=== PATIENT | female | born 1995 | race African-American/Black ===

== ENCOUNTER 2019-06-02 09:32 | Day surgery (SDC) | payer BC ==
[2019-05-30 10:57] LABS: Urine Appearance CLEAR; Urine Bilirubin NEGATIVE (NEG); Urine Blood NEGATIVE (NEG); Urine Color YELLOW; Urine Glucose NEGATIVE (NEG); Urine Protein NEGATIVE (NEG); Urine Specific Gravity 1.015 (1.005-1.030); Urine Urobilinogen 0.2 mg/dL (0.2-1.0); Urine pH 5.5 (5.0-7.0)
[2019-05-30 10:57] LABS: Absolute Lymphocytes (CBC) 1.9 K/uL (0.7-4.9); Basophils % 0.5 % (0-1.3); Hematocrit 36.8 % (36.0-45.0); Lymphocytes % 30.1 % (15.3-44.8); MPV 9.1 fL (7.6-11.3); RBC Red Blood Cell Count 4.41 M/uL (3.86-4.86)
[2019-05-30 11:04] LABS: Urine Microscopic Reflex NO UMIC
--- OUTSIDE RECORDS SUMMARY | 2019-06-02 09:36 | XMS REPORT ---
:1995 [facility] Address [address] [place] [address] [address]. [address] [place] [address] Care Team Providers Name Role Phone Unavailable Unavailable Unavailable Problems This patient has no known problems. Allergies, Adverse Reactions, Alerts This patient has no known allergies or adverse reactions. Medications This patient has no known medications.
[2019-06-02] MEDS ORDERED: SCOPOLAMINE HYDROBROMIDE PATCH TD ONE (10:05)
[2019-06-02] MEDS ORDERED: NA CHLORIDE 0.9% 1,000 ML ONE ×4 (10:05→14:46)
[2019-06-02] MEDS ORDERED: FENTANYL CITR 100 MCG/2 ML ONE (10:34)
[2019-06-02] MEDS ORDERED: PROPOFOL 200 MG/20 ML VIAL IV ONE (10:34)
[2019-06-02] MEDS ORDERED: ROCURONIUM 50 MG/5 ML VIAL IV ONE (10:35)
[2019-06-02] MEDS ORDERED: MIDAZOLAM HCL 2 MG/2 ML INJ ONE (10:35)
[2019-06-02] MEDS ORDERED: LIDOCAINE 1% MPF 5 ML VIAL ONE (10:35)
[2019-06-02] MEDS ORDERED: NS 0.9% VIAL 10 ML ONE (11:28)
[2019-06-02] MEDS ORDERED: VECURONIUM 10 MG/VIAL IV ONE (11:36)
[2019-06-02] MEDS ORDERED: dexAMETHasone 10 MG/ML VIAL ONE (11:37)
[2019-06-02] MEDS ORDERED: KETOROLAC 30 MG/ML INJ ONE (11:37)
[2019-06-02] MEDS ORDERED: DIPHENHYDRAMINE 50 MG/ML VIAL ONE (11:37)
[2019-06-02] MEDS ORDERED: ONDANSETRON 4 MG/2 ML VIAL ONE (12:45)
[2019-06-02] MEDS ORDERED: GLYCOPYRROLATE 0.2 MG/ML SYR ONE (13:02)
[2019-06-02] MEDS ORDERED: NEOSTIGMINE 1 MG/ML -10 ML VIAL ONE (13:02)
[2019-06-02] MEDS: HYDROMORPHONE HCL 2 MG/ML inj ONE ×3 (13:32→14:10)
[2019-06-02] MEDS ORDERED: PROMETHAZINE 25 MG/ML VIAL ONE (13:48)
[2019-06-02] MEDS ORDERED: HYDROCODONE/APAP 5/325 MG TAB ONE (15:22)
--- NOTE | 2019-06-05 03:17 | OP ---
Date of Procedure: 06/02/2019 Surgeon: Dorothy Jacob MD Orthodontic Band Maker: Brandi Acosta. Preoperative Diagnosis: Severe dysmenorrhea, right lower quadrant pain, and right ovarian cyst. Postoperative Diagnoses: Severe dysmenorrhea, right lower quadrant pain, and right ovarian cyst and extensive endometriosis. Procedures Performed: Diagnostic hysteroscopy, diagnostic laparoscopy with endometriosis excision, r ight ovarian biopsy with likely excision of endometriosis. Anesthesia: General endotracheal. Estimated Blood Loss: Minimal. Complications: No complications. Drains: None. Specimens: Right and left anterior cul-de-sac, right and left uterosacral ligaments, left pararectal , rectovaginal septum, and right ovarian endometriosis and all 7 specimens were sent. Left ovarian e ndometriosis was cauterized with fulguration using bipolar cautery. Indications: Patient is a 23-year-old with history of PCOS, endometriosis as a clinical diagnosis, o n naproxen and Zovia. Despite this, her dysmenorrhea has not improved. She also has very severe rig ht lower quadrant pain. After discussing with the patient about all her symptoms, after she failed o ral contraceptives, NSAIDs at the previous time, she had a cyst in the right ovary of 6.4 cm, which w as the side where patient had pain, suspicion of benign versus endometriotic cyst was discussed with the patient. She was given options of endometriosis excision versus observation with followup and po ssible GnRH antagonist. She preferred to proceed with surgical treatment as her pain has gotten much worse and despite the pills it has not improved with ovulation suppression, so she was consented for diagnostic hysteroscopy, diagnostic laparoscopy, endometriosis excision, possible right ovarian cyst ectomy. Bleeding, infection, injury to the bowel, bladder, and ureters was explained to the patient. The com plications include the above, not just as dictated. Recurrence of pain was also discussed. After consented and it was done in the preop, taken back to t he OR, placed in the supine fashion on the operating table. After general anesthesia was given, she was placed in a dorsal lithotomy position using Vik stirrups. Pelvic exam was performed, nodularit y was found on the posterior aspects of the uterosacrals on both sides. Arms were tucked by the side . SCDs were started. Time-out was done. After proper position was secured, abdomen, vulva, vagina, and perineum were prepped and draped in a sterile fashion. Sanchez was placed to drain the bladder an d attached to a Sanchez bag. The anterior lip of the cervix was exposed and held with an Allis clamp. Diagnostic SlimLine hysteroscope was passed through the cervical canal into the uterine cavity to ru le out any uterine anomalies. Both tubal ostia were unremarkable. Pictures were taken. Scope was r emoved. Diagnostic VCare was introduced. This area was draped. 1 cm infraumbilical incision was made with a scalpel using the open laparoscopy technique. Fascia wa s tagged with 0 Vicryl sutures and peritoneum entered sharply with 2 hemostats and Metzenbaum scissor s. Upper abdominal surfaces, liver, gallbladder are unremarkable. Patient's upper abdomen had no sc arring or endometriosis. 5 mm left lower quadrant and suprapubic ports were placed under direct vision, another 4 or 5 mm in t he right lower quadrant was placed because I knew that I would need some help with holding the ovarie s up with the tube with the bowel while I am operating with my other 2 hands. 5 mm port was placed under direct vision. Then, the procedure was started. There was endometriosis in the anterior cul-de-sac, both in the areas of the bladder peritoneum going over the uterine serosa at the level of the bladder pillars. There were clear lesions a little bit more extensive on the le ft than on the right, then the rest of the broad ligaments anteriorly were unremarkable. No other en dometriosis seen posteriorly. There was endometriosis completely infiltrating both uterosacral ligam ents, especially the distal 5 cm, the left was more severe than the right. However, there was some e ndo superior and lateral to the uterosacral ligament at the distal part in between the uterine artery and the uterosacral ligament. The endometriosis was a mirror image on the opposite side. However, there was extensive nodular change, which started at the uterosacral and the left pararectal endometr iosis together formed the large nodule. The rectovaginal septum endometriosis was limited to its spo t. Both tubes were unremarkable and the right ovary had endometriosis in the area that uterus and th e ovary would touch to the uterosacral ligament. There was superficial ovarian capsular involvement. This needed excision on the left side. There was barely rough abnormality on the texture of the ov savannah capsule but no endometriotic implants were seen per se. There were no ovarian cysts seen insid e the right ovary. The ovary on the right and left appeared to be same size and were about 3-4 cm, s o there was no need for looking for the ovarian cyst as it was not present at this time. After all the ports were placed, the right ovary was retracted with the help of the instrument from [facility] right lower quadrant. Then, endometriosis was picked up with the help of Alyse graspers on the capsule and the capsule was excised completely in a wide fashion and this area was gently cauterized at its base with the help of bipolar medium tip, then this was held for retraction on the side and pr oceeded down to the uterosacral dissection first. The peritoneum was opened laterally above the leve l of the ureteric tunnel. The peritoneum was incised with the help of monopolar Storz needle. Once the peritoneum was opened up, I was able to dissect around the lesions and get to the uterosacral onc e the lesions were excised from its underlying surface. There was nothing infiltrating in this part. Then, the uterosacral ligaments were targeted for excision until normal tissue was seen. The right uterosacral was completely infiltrated in the distal 4 cm and before the insertion into the upper va devin and the uterus. This was dissected free and excised with the help of the monopolar needle. The specimen was handed out. Then on the left side, the ureter was identified. The peritoneum was inci sed along the ureter about 10 cm proximally from the level of the ureteric tunnel. I was unable to i dentify and lateralize the ureter. So, once this was done, the peritoneum was opened up. I dissecte d the vessels and the ureter. This was from the peritoneum and it was retracted laterally. However, the implant was inferior and caudad to the course of the ureter. However, I needed to sep arate the ureter and retract it laterally so that I could open up the space getting to the nodule at the left uterosacral. Once this was accessed, the peritoneum was dissected all around the nodule sergio n along the medial aspect of the left pararectal space. An EEA Sizer medium size was inserted into t he rectum in order for me to know the confines of the rectal wall. On visualization, the peritoneal incision was made with the help of scissors, then the monopolar was used to dissect the nodular impla nt off the sidewall. This also included the excision of the uterosacral endometriosis first, then I was able to get to the pararectal space and dissect the entire nodule out. This was sent as 2 specim ens, then posteriorly the peritoneum covering the left pararectal space was getting adherent to the e ndometriotic lesion at the left uterosacral and this started to cause the peritoneum to fold over and obliterate the cul-de-sac on the left side so that the cul-de-sac adhesions were taken down. The pe ritoneum was restored to its normal anatomy. Then the endometriotic implants were all excised with t he help of monopolar Storz tape. The rectovaginal septum had a few implants and these were excised w ith the help of the needle as well. All the specimens were retrieved and handed out for pathology. The left ovarian capsule was cauterized at the area where there was beginning for implantation of end ometriosis. This was then cauterized with the medium tip bipolar completely and thoroughly and pictu res were taken. Thorough irrigation and suction were performed. Copious irrigation was used. Then, Interceed was cut in half and ovaries on both sides were wrapped up in the Interceed so that this co uld potentially prevent adhesions to the uterosacral ligaments or to other organs. There was excelle nt hemostasis. There was complete excision of the endometriosis that was visible. No bowel endometr iosis was seen. No other implants were left behind. All the instruments were removed. Trocars were removed under direct vision. Then, the umbilical Keo port was removed after de-sufflating the ga s. Fascia sutured together with the tagged 0 Vicryl sutures, knots tied at both ends. Then, all the skin incisions closed with the help of interrupted 4-0 Vicryl sutures and Steri-Strips placed. VCar e and the Sanchez were removed. Instrument, needle, and sponge counts were done and were correct at th e end of the case. Patient tolerated the procedure well. She will follow up with me in 1 week. EBL was minimal. SK/PHILIPL Voice ID: [id number] Report ID: [id number]
== END 2019-06-02 16:10 | disposition home or self-care (01) ==
LOC: OR 09:32
PROVIDERS: ATTEND Obstetrics & Gynecology
PROC: 0UBF4ZZ Excision of Cul-de-sac, Percutaneous Endoscopic Approach (ICD-10-PCS; 2019-06-02)
PROC: 0DBP4ZZ Excision of Rectum, Percutaneous Endoscopic Approach (ICD-10-PCS; 2019-06-02)
PROC: 0UB04ZZ Excision of Right Ovary, Percutaneous Endoscopic Approach (ICD-10-PCS; 2019-06-02)
PROC: 0UB44ZZ Excision of Uterine Supporting Structure, Percutaneous Endoscopic Approach (ICD-10-PCS; principal; 2019-06-02 10:30)
DX: N80.3 Endometriosis of pelvic peritoneum (principal); N80.4 Endometriosis of rectovaginal septum and vagina; N80.8 Other endometriosis; N80.1 Endometriosis of ovary; N83.201 Unspecified ovarian cyst, right side; N94.6 Dysmenorrhea, unspecified; E28.2 Polycystic ovarian syndrome; E03.9 Hypothyroidism, unspecified; Z79.899 Other long term (current) drug therapy
CPT/HCPCS: 36415; 81003; 81025; 82962; 85025; 86850; 86900; 86901; 88305; J1100; J1170; J2250; J2405; J2550; J2704; J2710; J3010; J7030

== ENCOUNTER 2021-06-25 06:36 | Day surgery (SDC) | payer BC ==
[2021-06-20 15:46] LABS: Hematocrit 35.7 % (36.0-45.0); RBC Red Blood Cell Count 4.22 M/uL (3.86-4.86)
[2021-06-20 15:47] LABS: Absolute Lymphocytes (CBC) 1.9 K/uL (0.7-4.9); Basophils % 0.5 % (0-1.3); Lymphocytes % 37.8 % (15.3-44.8); MPV 8.5 fL (7.6-11.3)
[2021-06-20 16:24] LABS: Urine Appearance CLEAR (Clear); Urine Bilirubin NEGATIVE (Negative); Urine Blood TRACE (Negative); Urine Color YELLOW (Yellow); Urine Glucose NEGATIVE (Negative); Urine Protein NEGATIVE (Negative); Urine pH 6.5 (5.0-7.0)
[2021-06-20 16:41] LABS: Urine Microscopic Reflex ORDER UMIC
[2021-06-20 17:00] LABS: Urine Bacteria <20 /HPF (<20); Urine RBC <5 /HPF (NONE SEEN)
[2021-06-25] MEDS ORDERED: BUPIVACAINE 0.25% PF 30 ML VIAL ONE (07:15)
[2021-06-25] MEDS ORDERED: METHYLENE BLUE 0.5% 10 ML AMP ONE (07:15)
[2021-06-25] MEDS ORDERED: SCOPOLAMINE HYDROBROMIDE PATCH TD ONE (07:16)
[2021-06-25] MEDS ORDERED: NA CHLORIDE 0.9% 1,000 ML ONE (07:16)
[2021-06-25] MEDS ORDERED: FENTANYL CITR 100 MCG/2 ML ONE ×2 (07:28→08:45)
[2021-06-25] MEDS ORDERED: propofoL 200 MG/20 ML VIAL IV ONE (07:28)
[2021-06-25] MEDS ORDERED: LIDOCAINE 2% MPF 5 ML VIAL ONE (07:29)
[2021-06-25] MEDS ORDERED: MIDAZOLAM HCL 2 MG/2 ML INJ ONE (07:29)
[2021-06-25] MEDS ORDERED: ROCURONIUM 50 MG/5 ML VIAL IV ONE (07:29)
[2021-06-25] MEDS ORDERED: dexAMETHasone 10 MG/ML VIAL ONE (07:29)
[2021-06-25] MEDS ORDERED: ONDANSETRON 4 MG/2 ML VIAL ONE (07:36)
[2021-06-25] MEDS ORDERED: Ringers Lactate 1,000 ML IV ONE ×2 (09:01→10:57)
[2021-06-25] MEDS ORDERED: CEFAZOLIN SODIUM 1 GM/VIAL ONE (10:19)
[2021-06-25] MEDS ORDERED: KETOROLAC 30 MG/ML INJ ONE (10:26)
[2021-06-25] MEDS: MEPERIDINE HCL 25 MG/ML SYR ONE ×2 (11:24→11:29)
[2021-06-25] MEDS ORDERED: MORPHINE 4 MG/ML SYR ONE (12:04)
[2021-06-25] MEDS ORDERED: PROMETHAZINE 25 MG TABLET ONE (12:48)
[2021-06-25] MEDS ORDERED: HYDROCODONE/APAP 5/325 MG TAB ONE ×2 (12:48→13:01)
[2021-06-25 14:12] VITALS: BP 141/77; TEMP 97.7; O2SAT 100
== END 2021-06-25 13:31 | disposition home or self-care (01) ==
LOC: OR 06:36
PROVIDERS: ATTEND Obstetrics & Gynecology
PROC: 0UBF4ZZ Excision of Cul-de-sac, Percutaneous Endoscopic Approach (ICD-10-PCS; 2021-06-25)
PROC: 3E1P88X Irrigation of Female Reproductive using Irrigating Substance, Via Natural or Artificial Opening Endoscopic, Diagnostic (ICD-10-PCS; 2021-06-25)
PROC: 0UJD8ZZ Inspection of Uterus and Cervix, Via Natural or Artificial Opening Endoscopic (ICD-10-PCS; principal; 2021-06-25 07:30)
DX: N94.6 Dysmenorrhea, unspecified (principal); N80.3 Endometriosis of pelvic peritoneum; N94.11 Superficial (introital) dyspareunia; N92.0 Excessive and frequent menstruation with regular cycle; Z87.440 Personal history of urinary (tract) infections; Z20.822 Contact with and (suspected) exposure to COVID-19
CPT/HCPCS: 58555; 58662; 58350; 85025; 36415; 86900; 86850; 81025; 86901; 82947; 88305; U0002; J2704; J2250; J3010 ×2; J1100; J2175; J7120 ×2; J7030; J2405; J0690; 81003; 81015; Q0169

== ENCOUNTER 2021-08-18 14:44 | Emergency (ER) | payer BC, SELFPAY ==
--- NOTE | 2021-08-18 15:35 | EDPHYS ---
Physician Documentation [facility] Name: Connie Duong Age: 25 yrs Sex: Female : 1995 Arrival Date: 08/18/2021 Time: 14:46 Bed 16 Private MD: ED Physician Rey Carmichael HPI: 08/18 15:30 This 25 yrs old Black Female presents to ER via Ambulatory with complaints of cp Hemorrhoids. 15:30 The patient presents to the emergency department with pain in the rectal area. cp 15:30 Onset: The symptoms/episode began/occurred yesterday. Associate signs and symptoms: cp Pertinent negatives: abdominal pain, rectal bleeding. 15:30 Context: the patient has a known history of hemorrhoids, patient reports flare-up with cp menstrual cycle. Patient reports she has been using previously prescribed cream w/o relief. MONEY ORDER CLERK: 15:52 LMP N/A - control method ll1 Historical: - Allergies: 14:59 Sulfa (Sulfonamide Antibiotics); vg1 - Home Meds: 14:59 levothyroxine oral [Active]; Metformin Oral [Active]; vg1 - PMHx: 14:59 PCOS; Hypothyroidism; vg1 - Immunization history:: Adult Immunizations up to date, Client reports receiving the 2nd dose of the Covid vaccine. - Social history:: Smoking status: Patient reports the use of cigarette tobacco products, denies chronic smoking, but will smoke occasionally. ROS: 15:32 Constitutional: Negative for body aches, chills, fever. cp 15:32 Abdomen/GI: Positive for rectal pain, Negative for abdominal pain, nausea, vomiting, and diarrhea, constipation, rectal bleeding. Exam: 15:34 Constitutional: The patient appears in no acute distress, alert, awake, non-toxic, well cp developed, well nourished, obese. 15:34 Head/Face: Normocephalic, atraumatic. cp 15:34 Cardiovascular: Rate: normal. 15:34 Respiratory: the patient does not display signs of respiratory distress, Respirations: normal. 15:34 Abdomen/GI: Inspection: abdomen appears normal, Palpation: abdomen is soft and non-tender, in all quadrants, Rectal exam: hemorrhoid(s), external, with pain, without bleeding, without thrombosis, the exam is chaperoned by the nurse. Vital Signs: 14:57 BP 132 / 87; Pulse 83; Resp 16; Temp 98.4; Pulse Ox 100% ; Weight 97.07 kg; Height 5 vg1 ft. 6 in. (167.64 cm); Pain 10/10; 14:57 Body Mass Index 34.54 (97.07 kg, 167.64 cm) vg1 MDM: 15:09 Patient medically screened. cp 15:35 Differential diagnosis: hemorrhoids, fissure, abscess, pilonidal cyst, condyloma. cp 15:35 Data reviewed: vital signs, nurses notes, and as a result, I will discharge patient. cp Counseling: I had a detailed discussion with the patient and/or guardian regarding: the historical points, exam findings, and any diagnostic results supporting the discharge/admit diagnosis, to return to the emergency department if symptoms worsen or persist or if there are any questions or concerns that arise at home. Administered Medications: No medications were administered Disposition: 15:40 Chart complete. cp Disposition Summary: 08/18/21 15:35 Discharge Ordered Location: Home cp Problem: an ongoing problem cp Symptoms: are unchanged cp Condition: Stable cp Diagnosis - Other hemorrhoids cp Followup: cp - With: Titus Mota MD - When: 1 week - Reason: Worsening of condition Discharge Instructions: - Discharge Summary Sheet cp - High-Fiber Diet cp - Hemorrhoids cp - Surgical Procedures for Hemorrhoids cp - Nonsurgical Procedures for Hemorrhoids cp Forms: - Medication Reconciliation Form cp - Thank You Letter cp - Antibiotic Education cp - Prescription Opioid Use cp Prescriptions: - Anusol-HC 25 mg Rectal Suppository - insert 1 suppository by RECTAL route every 12 hours As needed; 20 suppository; cp Refills: 0, Product Selection Permitted Addendum: 08/22/2021 00:02 Co-signature as Attending Physician, Rey Carmichael MD. r n Signatures: Rey Carmichael MD MD rn Page, Corey, PA PA cp Garcia, Victoria, RN RN vg1
--- NOTE | 2021-08-18 15:35 | ER ---
Nurse's Notes [facility] Name: Connie Duong Age: 25 yrs Sex: Female : 1995 Arrival Date: 08/18/2021 Time: 14:46 Bed 16 Private MD: Diagnosis: Other hemorrhoids Presentation: 08/18 14:57 Chief complaint: Patient states: "Im having a hemorrhoid flare up, this happens every vg1 so often right before my period starts." Pt states bleeding that is bright red and began yesterday and its very uncomfortable to sit down. Coronavirus screen: Vaccine status: Patient reports receiving the 2nd dose of the covid vaccine. Ebola Screen: Patient negative for fever greater than or equal to 101.5 degrees Fahrenheit, and additional compatible Ebola Virus Disease symptoms. Initial Sepsis Screen: Does the patient meet any 2 criteria? No. Patient's initial sepsis screen is negative. Does the patient have a suspected source of infection? No. Patient's initial sepsis screen is negative. Risk Assessment: Do you want to hurt yourself or someone else? Patient reports no desire to harm self or others. Onset of symptoms was August 17, 2021. 14:57 Method Of Arrival: Ambulatory vg1 14:57 Acuity: [place] 3 vg1 Triage Assessment: 14:59 General: Appears in no apparent distress. uncomfortable, Behavior is calm, cooperative. vg1 Pain:. MALTSTER: 15:52 LMP N/A - control method ll1 Historical: - Allergies: 14:59 Sulfa (Sulfonamide Antibiotics); vg1 - Home Meds: 14:59 levothyroxine oral [Active]; Metformin Oral [Active]; vg1 - PMHx: 14:59 PCOS; Hypothyroidism; vg1 - Immunization history:: Adult Immunizations up to date, Client reports receiving the 2nd dose of the Covid vaccine. - Social history:: Smoking status: Patient reports the use of cigarette tobacco products, denies chronic smoking, but will smoke occasionally. Screenin:56 Abuse screen: Denies threats or abuse. Nutritional screening: No deficits noted. ll1 Tuberculosis screening: No symptoms or risk factors identified. 15:52 Fall Risk None identified. Total Ro Fall Scale indicates No Risk (0-24 pts). ll1 Assessment: 15:51 General: Appears uncomfortable, Behavior is calm, cooperative, appropriate for age. ll1 Pain: Complains of pain in anus Quality of pain is described as aching, Aggravated by increased activity. Neuro: No deficits noted. Cardiovascular: No deficits noted. Respiratory: No deficits noted. GI: Rectal exam: Hemorrhoids noted, Bowel sounds present X 4 quads. Abd is soft and non tender X 4 quads. Reports hemorrhoids. Vital Signs: 14:57 BP 132 / 87; Pulse 83; Resp 16; Temp 98.4; Pulse Ox 100% ; Weight 97.07 kg; Height 5 vg1 ft. 6 in. (167.64 cm); Pain 10/10; 14:57 Body Mass Index 34.54 (97.07 kg, 167.64 cm) vg1 ED Course: 14:46 Patient arrived in ED. rg4 14:56 Arm band placed on Patient placed in an exam room, on a stretcher. ll1 14:59 Triage completed. vg1 15:03 Srinivasan Cheng, NIKO is Primary Nurse. ll1 15:03 Patient has correct armband on for positive identification. Bed in low position. Call ll1 light in reach. Side rails up X 1. Cardiac monitoring not applicable on this patient. 15:08 Singh Gao PA is PHCP. cp 15:08 Rey Carmichael MD is Attending Physician. cp 15:33 Titus Mota MD is Referral Physician. cp 15:52 No provider procedures requiring assistance completed. Patient did not have IV access ll1 during this emergency room visit. Administered Medications: No medications were administered Outcome: 15:35 Discharge ordered by MD. cp 15:52 Discharged to home ambulatory. ll1 15:52 Condition: stable 15:52 Discharge instructions given to patient, Instructed on discharge instructions, follow up and referral plans. medication usage, Demonstrated understanding of instructions, follow-up care, medications, Prescriptions given X 1. 15:53 Patient left the ED. ll1 Signatures: Singh Gao PA PA cp Garcia, Rubi rg4 Kavita Suarez RN RN vg1 Srinivasan Cheng RN RN ll1 Corrections: (The following items were deleted from the chart) 15:01 14:57 Chief complaint: Patient states: "Im having a hemorrhoid flare up, this happens vg1 every so often right before my period starts." Pt states bleeding that is bright red and began yesterday. vg1
[2021-08-18 16:02] VITALS: BP 132/87; TEMP 98.4; O2SAT 100
== END 2021-08-18 15:53 | disposition home or self-care (01) ==
LOC: ER 14:44
DX: K64.8 Other hemorrhoids (principal); E28.2 Polycystic ovarian syndrome; E03.9 Hypothyroidism, unspecified; F17.210 Nicotine dependence, cigarettes, uncomplicated; Z79.899 Other long term (current) drug therapy; Z88.2 Allergy status to sulfonamides
CPT/HCPCS: 99282

== ENCOUNTER 2024-08-09 10:48 | Emergency (ER) | payer BC ==
--- OUTSIDE RECORDS SUMMARY | 2024-08-09 10:53 | XMS REPORT | Continuity of Care Document ---
Author Name Unknown Address [address] [place] [address] [facility] thconnect Address [address] [place] [address] Care Team Providers Care Senior Adults Director Name Role Phone SOHA ZIEGLER Primary Care Antionette stevens Unavailable Gloria Albarado Attending Clinician Unavailab EJ Stafford Attending Clinician KANDI Herndon Attending Clinician Unavailable Ebrahim Kandi ROWLAND Attending Clinician + Unknown, Attending Attending Clinician Unavailab Jessie Feldman RN Attending Clinician Unavailmanuel Perdomo MD, Maile Attending Clinician [phone] MIALE PERDOMO Attending Clinician Unavailable Unknown, Attending Attending Clinician Unavailab le [email or web address]_S Attending Clinician Unavaila gee Agudelo Attending Clinician Unavailable BENJAMIN GEE Attending Clinician Unav ailable Reddy_Avery Attending Clinician Unavailable Kathie Blakely Attending Clinician Unavaila Spike Mosher Attending Clinician UnavailLANDEN Perrin Attending Clinician Unavailable PIPO Attending Clinician Unavailable Therapy, Adc Covid Infusion Attending Clinician Unavailable Bobby Arreola MD Attending Clinician [phone] BOBBY ARREOLA Attending Clinician Unavailable Doctor Unassigned, [place] Attending Clinician Dalia Ramey RN Attending Clinician Unavailab chloe Swan, Ang Db Test Attending Clinician Unavailmanuel soni Ebrahim Kandi ROWLAND Attending Clinician + ISABELA HERNANDEZ Attending Clinician Unavailmanuel Guillen DINKERGina Attending Clinician [phone] GINA GUILLEN Attending Clinician Unavailable [email or web address]_S Admitting Clinician Unavaila gee Agudelo Admitting Clinician Unavailable Crisledge_Avery Admitting Clinician Unavailable Kathie Blakely Admitting Clinician Unavaila gee FOSS Admitting Clinician Unavailable EJ BLACKWOOD Admitting Clinician GINA Leal Admitting Clinician Unavailable Payers Payer Name Policy Type Policy Number Effective Date Expiration Date Source [facility] [id number] 2021 00:00:00 [facility] 6 [id number] [facility] [place] [id number] 2023 00:00:00 [place] [id number] 2022 00:00:00 Problems Condition Name Condition Details Condition Category Status Onset Date Resolution Date Last Treatment Date Treating Clinician Comments Source Chronic vaginitis Chronic Vaginitis Problem Active 01-01 00:00: 00 [facility] Recurrent candidiasi s of vagina Recurrent Candidiasi s of Vagina Problem Active 2 00:00: 00 [facility] Acute vaginitis Acute Vaginitis Problem Active 2022-11 030 00:00: 00 [facility] Female stress incontinen ce Female Stress Incontinen ce Problem Active 2022-11 0 00:00: 00 [facility] History of bariatric surgical procedure History of Bariatric Surgical Procedure Problem Active 2021-11 0-03 00:00: 00 [facility] Sickle cell trait Sickle Cell Trait Problem Active 06-05 00:00: 00 [facility] Insulin resistance Insulin Resistance Problem Active 05-05 00:00: 00 [facility] Primary dysmenorrh ea Primary Dysmenorrh ea Problem Active 2020-11 00:00: 00 [facility] Internal hemorrhoid s grade I Internal Hemorrhoid s Grade I Problem Active 2020-11 00:00: 00 [facility] Endometrio sis of pelvic peritoneum Endometrio sis of Pelvic Peritoneum Problem Active 2020-11 0 00:00: 00 [facility] Polymenorr hea Polymenorr hea Problem Active 2020-11 0- 00:00: 00 [facility] Excessive menstruati on with irregular cycle Excessive Menstruati on with Irregular Cycle Problem Active 2020-11 0- 00:00: 00 [facility] Superficia l pain on intercours e Superficia l Pain on Intercours e Problem Active 06-05 00:00: 00 [facility] Excessive and frequent menstruati on Excessive and Frequent Menstruati on Problem Active 06-05 00:00: 00 [facility] Female infertilit y Female Infertilit y Problem Active 7 00:00: 00 [facility] Constipati on Constipati on Problem Active 2 00:00: 00 [facility] Venereal disease screening Venereal Disease Screening Problem Active 2- 00:00: 00 [facility] Pelvic and perineal pain Pelvic and Perineal Pain Problem Active 2 00:00: 00 [facility] RIGHT SIDE PAIN RIGHT SIDE PAIN Active 11/17/2020 [facility] Diagnosis Active 1 00:00: 00 2020-11-17 17:44:00 Lorraine Gomez ABDOMINAL PAIN ABDOMINAL PAIN Active 11/17/2020 [facility] Diagnosis Active 11-17 00:00: 00 2020-11-19 07:14:00 Lorraine Gomez ABD PAIN ABD PAIN Active 11/17/2020 [facility] Diagnosis Active 11-17 00:00: 00 2020-11-17 19:16:00 Lorraine Gomez MORBID OBESITY MORBID OBESITY Active 10/23/2020 [facility] Diagnosis Active 2019-11 215 00:00: 00 2020-11-19 07:14:00 Lorraine Gomez OTHER DISEASES OF THE STOMACH AND DUODEN OTHER DISEASES OF THE STOMACH AND DUODEN Active 08/01/2020 [facility] Diagnosis Active 0 9 00:00: 00 2020-08-17 07:56:00 Lorraine Gomez Endometrio sis of rectovagin al septum and vagina Endometrio sis of Rectovagin al Septum and Vagina Problem Active 06-07 00:00: 00 [facility] Dysuria Dysuria Problem Active 06-07 00:00: 00 [facility] Diarrhea Diarrhea Problem Active 05-30 00:00: 00 [facility] Right lower quadrant pain Right Lower Quadrant Pain Problem Active 04-08 00:00: 00 [facility] Cyst of right ovary Cyst of Right Ovary Problem Active 04-08 00:00: 00 [facility] Hypothyroi dism Hypothyroi dism Problem Active 0 12-08 00:00: 00 [facility] Hirsutism Hirsutism Problem Active 12-08 00:00: 00 [facility] Active immunizati on Active Immunizati on Problem Active 12-08 00:00: 00 [facility] Polycystic ovary syndrome Polycystic Ovary Syndrome Problem Active 12-08 00:00: 00 [facility] Severe obesity Severe Obesity Problem Active 12-07 00:00: 00 [facility] Dysmenorrh ea Dysmenorrh ea Problem Active 12-07 00:00: 00 [facility] Genuine stress incontinen ce Genuine Stress Incontinen ce Problem Active 12-07 00:00: 00 [facility] History of urinary tract infection History of Urinary Tract Infection Problem Active 12-07 00:00: 00 [facility] Contracept ion care education Contracept ion Care Education Problem Active 12-07 00:00: 00 [facility] Gynecologi rubén examinatio n abnormal Gynecologi rubén Examinatio n Abnormal Problem Active 12-07 00:00: 00 [facility] Myopia (disorder) Myopia (disorder) Active 06/28/2013 Problem 03/14/2021 Data migrated from [employer] on 04/07/15. [facility] Problem Active 06-28 00:00: 00 2021-03-14 00:57:51 Memoria avery Gomez [id number] Lumbar Radiculopa thy Problem [facility] Anxiety (finding) Anxiety (finding) Active Problem 03/14/2021 [facility] Problem Active 2021-03-14 00:57:51 Memoria avery Gomez Mixed anxiety and depressive disorder (disorder) Mixed anxiety and depressive disorder (disorder) Active Problem 03/14/2021 [facility] Problem Active 2021-03-14 00:57:51 Memoria avery Gomez Morbid obesity (disorder) Morbid obesity (disorder) Active Problem 03/14/2021 [facility] Problem Active 2021-03-14 00:57:51 Lorraine Gomez ILLNESS, UNSPECIFIE D ILLNESS, UNSPECIFIE D Active [facility] Diagnosis Active 2020-11-19 07:14:00 Lorraine Gomez UNSPECIFIE D ABDOMINAL PAIN UNSPECIFIE D ABDOMINAL PAIN Active [facility] Diagnosis Active 2020-11-19 07:14:00 Lorraine Gomez No known active problems No known active problems Disease [facility] acute hospital Allergies, Adverse Reactions, Alerts Allergy Name Allergy Type Status Severity Reaction(s) Onset Date Inactive Date Treating Clinician Comments Source SULFAMET HOXAZOLE -TRIMETH OPRIM DRUG Active Unknown-Cmnt 08-07 00:00: 00 [facility] Sulfamet hoxazole -Trimeth oprim Drug Allergy Active Unknown - See comments 08-07 00:00: 00 [facility] CIPROFLO XACIN DRUG INGREDI Active Med Hives 04-14 00:00: 00 [facility] Ciproflo xacin Drug Allergy Active Rash 04-14 00:00: 00 [facility] Sulfa (Sulfona mide Antibiot ics) Propensi ty to adverse reaction s Active Rash 07-29 00:00: 00 [facility] Sulfa (Sulfona mide Antibiot ics) Drug Allergy Active Other - See comments 07-29 00:00: 00 [facility] Sulfa (Sulfona mide Antibiot ics) Propensi ty to adverse reaction s Active Rash 07-29 00:00: 00 [facility] SULFA (SULFONA MIDE ANTIBIOT ICS) Drug Class Active Rash 07-29 00:00: 00 [facility] LIRAGLUT DANIELLA DRUG INGREDI Active NAUSEA ONLY 03-13 00:00: 00 [facility] Liraglut daniella Drug Allergy Active Nausea Only 03-13 00:00: 00 [facility] Ciproflo xacin Allergy to substanc e Active Hives [facility] Sulfacet amide Allergy to substanc e Active Hives [facility] sulfa drugs<womack p>1</sup > sulfa drugs<womack p>1</sup > Active Lorraine Gomez SULFA (SULFONA MIDE ANTIBIOT ICS) Allergy to substanc e Active Moderate Rash [facility] Social History Social Habit Start Date Stop Date Quantity Comments Source Sex Assigned At [facility] History of Tobacco Use [facility] Sexual orientation [facility] Exposure to SARS-CoV-2 (event) Not sure [facility] Social History 2020-11-05 17:49:38 2020-11-05 17:49:38 [facility] Smoking Status Start Date Stop Date Source Never Smoker [facility] Former Smoker [facility] Tobacco smoking consumption unknown [facility] Medications Ordered Medication Name Filled Medication Name Start Date Stop Date Current Medication? Ordering Clinician Indication Dosage Frequency Signature (SIG) Comments Components Source bromphenira mine-pseudo ephedrine-D M (BROMFED DM) 2-30-10 mg/5 mL syrup 03-14 00:00: 00 Yes [id number] 10mL Take 10 mL by mouth 4 (four) times daily as needed for Cold symptoms or Congestion /Allergies . [facility] azelastine 137 mcg (0.1 %) nasal spray 03-14 00:00: 00 Yes [id number] 1{spray } Use 1 Edcouch in each nostril in the morning and 1 Edcouch in the evening. Use in each nostril as directed [facility] fluticasone propionate 50 mcg/actuati on nasal spray 03-14 00:00: 00 Yes [id number] 1{spray } Use 1 Edcouch in each nostril in the morning. [facility] albuterol 90 mcg/actuati on inhaler 03-14 00:00: 00 Yes [id number] 2{puff} Inhale 2 Puffs every 6 (six) hours as needed for Shortness of Breath or Wheezing. [facility] predniSONE 20 mg tablet 03-14 00:00: 00 03-20 04:59 :00 No [id number] 40mg Take 2 tablets by mouth in the morning for 5 days. [facility] acute hospital casirivimab -imdevimab (REGEN-COV (EUA)) injection (CO-FORMULA TION) 1,200 mg 2020-11 15:45: 00 10-26 15:41 :00 No [id number] 1200mg 1,200 mg, Subcutaneo us, ONCE, 1 dose, On 10/26/21 at 1000, Routine [facility] acute [facility] multivitami n with iron 03-11 15:30: 00 Yes 1 mL =, PO, Daily, 0 Refill(s) Lorraine Gomez Vitamin D3 03-11 15:30: 00 Yes 0 Refill(s) Lorraine Gomez Calcium Citrate 03-11 15:30: 00 Yes PO, BID, 0 Refill(s) Lorraine Gomez Miralax 11-18 15:00: 00 No Notes: Dissolve in 8 oz of water or juice. (Same as: Miralax) Lorraine Lawsonann Thyroxine 11-18 12:30: 00 No Notes: Take 1 hour before or 2 hours after meal; Enteral feeds may interefere with the absorption of this medication . (Same as:Synthro id, Levothroid ) Sanazmarcia Lawsonann Wellbutrin 11-18 05:00: 00 No Notes: (Same As: Wellbutrin ) Sanazmarcia avery Mcgrath Effexor 11-18 04:45: 00 No Notes: (Same As: Effexor) Lorraine Gomez Docusate Sodium 100 MG Oral Capsule [Colace] 11-18 03:00: 00 No Notes: (Same as: Colace) (Do Not Crush) Lorraine Gomez Sucralfate 11-18 03:00: 00 No Notes: May interfere w/enteral feeds - Take 1 hr before or 2 hr after antacids, dairy pdt, meals & minerals - On empty stomach. For patients unable to swallow tablet, dissolve in 10mL - 30mL of water or juice and stir before giving. (Same As: Carafate) Sanazmarcia Lawsonann Protonix 11-18 02:33: 00 No Notes: For IV push reconstitu te with 10 ml 0.9% sodium chloride and push over 2 minutes. (Same as: Protonix) Lorraine Gomez Calcium Chloride 0.0014 MEQ/ML / Potassium Chloride 0.004 MEQ/ML / Sodium Chloride 0.103 MEQ/ML / Sodium Lactate 0.028 MEQ/ML Injectable Solution 11-18 01:35: 00 No 1,000 mL, Rate: 125 ml/hr, Infuse over: 8 hr, Route: IV, Dosing Weight 114.091 kg, Total Volume: 1,000, Start date: 11/17/20 19:35:00 [employer], Duration: 30 day, Stop date: 12/17/20 19:34:00 [employer], 2.34, m2, 0 Lorraine Gomez Acetaminoph en 11-18 01:35: 00 No Notes: Max acetaminop hen = 4000mg/day (4 gm/day). (Same as: Tylenol) Lorraine Gomez tramadol hydrochlori de 50 MG Oral Tablet 11-18 01:35: 00 No Notes: Not to exceed 400mg/day. (Same As: Ultram) Lorraine Gomez Dilaudid 11-18 01:35: 00 No Notes: Same as Dilaudid Lorraine Gomez Sodium Chloride 0.9% IV 984.8 mL + M.V.I.-12 10 mL Daily + folic acid IV 1 mg Daily + thiamine IV 5 11-18 01:35: 00 No 984.8 mL, Rate: 100 ml/hr, Infuse over: 10 hr, Route: IV, Dosing Weight 114.091 kg, Total Volume: 1,000, Start date: 11/17/20 19:35:00 [employer], Duration: 1 doses or times, Stop date: 11/18/20 5:34:00 [employer], 2.34, m2, 0 Lorraine Gomez Calcium Chloride 0.0014 MEQ/ML / Potassium Chloride 0.004 MEQ/ML / Sodium Chloride 0.103 MEQ/ML / Sodium Lactate 0.028 MEQ/ML Injectable Solution 11-18 01:29: 00 No 1,000 mL, 1,000 ml/hr, Infuse Over: 1 hr, Route: IV, 1,000, Drug form: INJ, ONCE, Priority: STAT, Dosing Weight 114.091 kg, Start date: 11/17/20 19:29:00 [employer], Stop date: 11/17/20 19:29:00 [employer], 0 Lorraine Gomez Saline Flush 0.9% 11-17 21:20: 00 No Notes: (Same as: BD Posiflush) Lorraine Gomez ursodiol 300 mg oral capsule 11-15 21:19: 00 Yes 300 mg = 1 cap, PO, BID, # 180 cap, 1 Refill(s), Pharmacy: [facility] Cristiano Piedra, 167.64, cm, 11/15/20 14:02:00 [employer], Height, 114.091, kg, 11/15/20 14:02:00 [employer], Weight Sanazmarcia avery Gomez Potassium Chloride 1.33 MEQ/ML Oral Solution 11-10 15:00: 00 No Notes: (Same as: Potassium Chloride) Lorraine Gomez Ondansetron 4 MG Oral Tablet [Zofran] 11-10 14:41: 00 Yes 4 mg = 1 tab, PO, BID, # 10 tab, 0 Refill(s) Lorraine Gomez Emend 11-09 17:30: 00 No Notes: (Same as: Emend) restricted to the Hematology /Oncology service for high and moderate emetogenic regimen according to ASCO Guidelines Only for Chemothera py-Induced nausea & vomiting Lorraine Gomez Wellbutrin 11-09 16:18: 00 No 75 mg, 1 tab, Route: PO, Drug form: TAB, Daily, Dosing Weight 122.273, kg, Start date: 11/09/20 10:18:00 [employer], Duration: 30 day, Stop date: 12/09/20 9:00:00 [employer], 0 Lorraine Gomez Thyroxine 11-09 16:18: 00 No Notes: Take 1 hour before or 2 hours after meal; Enteral feeds may interefere with the absorption of this medication . (Same as:Synthro id, Levothroid ) Lorraine Gomez Effexor 11-09 16:17: 00 No Notes: (Same As: Effexor) Lorraine Gomez tramadol hydrochlori de 50 MG Oral Tablet 11-09 14:55: 00 No Notes: Not to exceed 400mg/day. (Same As: Ultram) Lorraine Gomez tramadol hydrochlori de 50 MG Oral Tablet 11-09 14:50: 00 Yes 50 mg = 1 tab, PO, BID, X 15 day, # 30 tab, 0 Refill(s) Lorraine Lawsonann Emend 11-09 14:48: 00 No 40 mg, Route: PO, ONCE, Dosing Weight 122.273, kg, Start date: 11/09/20 8:48:00 [employer], Stop date: 11/09/20 8:48:00 [employer] Lorraine Gomez Enoxaparin 11-09 06:00: 00 No Notes: (Same as: Lovenox) Lorraine varela Mcgrath Ofirmev 11-09 00:00: 00 No Notes: Infuse over 15 minutes Do not exceed 4gm/day of acetaminop hen MEDICATION WASTE Product Size: 1000 mg Product Wasted: ___ mg Lorraine Gomez ketOROLAC 30 mg/mL injectable solution 2019-11 22:23: 00 No 4 days MEDICATION WASTE Product Size: 30 mg Product Wasted: ___ mg Lorraine Gomez glycopyrrol ate (ANES) 2019-11 17:59: 00 No Route: IV, Drug form: INJ, ONCE, Stop date: 11/08/20 11:59:00 [employer] Lorraine Gomez neostigmine (ANES) 2019-11 17:59: 00 No Route: IV, Drug form: INJ, ONCE, Stop date: 11/08/20 11:59:00 [employer] Lorraine Gomez dexamethaso ne (ANES) 2019-11 17:59: 00 No Route: IV, Drug form: INJ, ONCE, Stop date: 11/08/20 11:59:00 [employer] Lorraine Gomez sugammadex (ANES) 2019-11 17:59: 00 No Route: IV, Drug form: SOLN, ONCE, Stop date: 11/08/20 11:59:00 [employer] Lorraine Gomez Dilaudid 2019-11 17:54: 00 No 0.5 mg, Route: IVP, Q3H, Dosing Weight 122.273, kg, PRN Pain Score 7-10, Start date: 11/08/20 11:54:00 [employer], Duration: 30 day, Stop date: 12/08/20 11:53:00 [employer] Lorraine Gomez Phenergan 2019-11 17:54: 00 No 12.5 mg, 50 mL, Route: IVPB, Drug form: SOLN, Q4H, Dosing Weight 122.273, kg, PRN Nausea & Vomiting, Start date: 11/08/20 11:54:00 [employer], Duration: 30 day, Stop date: 12/08/20 11:53:00 [employer], 0 Lorraine Gomez Zofran 2019-11 17:54: 00 No 4 mg, Route: IVP, Drug form: INJ, Q8H, Dosing Weight 122.273, kg, PRN Nausea, Start date: 11/08/20 11:54:00 [employer], Duration: 30 day, Stop date: 12/08/20 11:53:00 [employer] Lorraine Gomez Emend 2019-11 17:54: 00 No Notes: Same as: Emend restricted to the Hematology /Oncology service for high and moderate emetogenic regimen according to ASCO Guidelines Passthroug h Only for Chemothera py-Induced nausea & vomiting Lorraine Gomez Calcium Chloride 0.0014 MEQ/ML / Potassium Chloride 0.004 MEQ/ML / Sodium Chloride 0.103 MEQ/ML / Sodium Lactate 0.028 MEQ/ML Injectable Solution 2019-11 17:51: 00 No 1,000 mL, Rate: 125 ml/hr, Infuse over: 8 hr, Route: IV, Dosing Weight 122.273 kg, Total Volume: 1,000, Start date: 11/08/20 11:51:00 [employer], Stop date: 11/09/20 7:00:00 [employer], 2.43, m2, 0 Lorraine Gomez Lactated Ringers IV 1,000 mL 2019-11 17:51: 00 No 1,000 mL, Rate: 80 ml/hr, Infuse over: 12.5 hr, Route: IV, Dosing Weight 122.273 kg, Total Volume: 1,000, Priority: STAT, Start date: 11/08/20 11:51:00 [employer], Duration: 30 day, Stop date: 12/08/20 11:50:00 [employer], 2.43, m2, 0 Lorraine Gomez Dilaudid 2019-11 17:51: 00 No Notes: Same as Dilaudid Lorraine Gomez Zofran 2019-11 17:51: 00 No Notes: (Same as: Zofran) MEDICATION WASTE Product Size: 4 mg Product Wasted: ___ mg Lorraine Gomez Phenergan 2019-11 17:51: 00 No 12.5 mg, 50 mL, Route: IVPB, Drug form: SOLN, Q4H, Dosing Weight 122.273, kg, PRN Nausea & Vomiting, Start date: 11/08/20 11:51:00 [employer], Duration: 30 day, Stop date: 12/08/20 11:50:00 [employer], 0 Lorraine Gomez Hydromorpho ne 2019-11 17:51: 00 No 0.3 mg, Route: IVP, Q3H, Dosing Weight 122.273, kg, PRN Pain Score 7-10, Start date: 11/08/20 11:51:00 [employer], Duration: 5 day, Stop date: 11/13/20 11:50:00 [employer] Sanazmarcia avery Gomez ondansetron (ANES) 2019-11 17:44: 00 No Route: IV, Drug form: INJ, ONCE, Stop date: 11/08/20 11:44:00 [employer] Lorraine Gomez famotidine (ANES) 2019-11 17:18: 00 No Route: IV, Drug form: INJ, ONCE, Stop date: 11/08/20 11:18:00 [employer] Lorraine Gomez acetaminoph en (ANES) 10 mg 2019-11 17:15: 00 No Route: IV, Drug form: INJ, Start date: 11/08/20 11:15:00 [employer], Stop date: 11/08/20 12:15:00 [employer] Lorraine Gomez rocuronium (ANES) 2019-11 17:13: 00 No Route: IV, Drug form: INJ, ONCE, Stop date: 11/08/20 11:13:00 [employer] Lorraine Gomez lidocaine (ANES) 2019-11 17:08: 00 No Route: IV, Drug form: INJ, ONCE, Stop date: 11/08/20 11:08:00 [employer] Lorraine Gomez propofol (ANES) 2019-11 17:08: 00 No Route: IV, Drug form: INJ, ONCE, Stop date: 11/08/20 11:08:00 [employer] Lorraine Gomez succinylcho line ([facility]) 2019-11 17:08: 00 No Route: IV, Drug form: INJ, ONCE, Stop date: 11/08/20 11:08:00 [employer] Lorraine Gomez midazolam ([facility]) 2019-11 17:03: 00 No Route: IV, Drug form: SOLN, ONCE, Stop date: 11/08/20 11:03:00 [employer] Lorraine Gomez fentaNYL ([facility]) 2019-11 17:03: 00 No Route: IV, Drug form: INJ, ONCE, Stop date: 11/08/20 11:03:00 [employer] Lorraine Gomez ceFAZolin ([facility]) 2019-11 17:03: 00 No Route: IV, Drug form: INJ, ONCE, Stop date: 11/08/20 11:03:00 [employer] Lorraine Gomez Calcium Chloride 0.0014 MEQ/ML / Potassium Chloride 0.004 MEQ/ML / Sodium Chloride 0.103 MEQ/ML / Sodium Lactate 0.028 MEQ/ML Injectable Solution 2019-11 16:55: 00 No 1,000 mL, Rate: 125 ml/hr, Infuse over: 8 hr, Route: IV, Dosing Weight 122.273 kg, Total Volume: 1,000, Start date: 11/08/20 10:55:00 [employer], Duration: 30 day, Stop date: 12/08/20 10:54:00 [employer], 2.43, m2 Lorraine Gomez Morphine 2019-11 16:55: 00 No 4 mg, Route: IVP, Q5Min, Dosing Weight 122.273, kg, PRN Pain Score 7-10, Start date: 11/08/20 10:55:00 [employer], Duration: 3 doses or times, Stop date: Limited # of times Lorraine Gomez Flumazenil 2019-11 16:55: 00 No 0.2 mg, Route: IVP, PRN, Dosing Weight 122.273, kg, PRN Benzodiaze pine Reversal, Initial dose, Start date: 11/08/20 10:55:00 [employer], Duration: 30 day, Stop date: 12/08/20 10:54:00 [employer] Lorraine Gomez Naloxone 2019-11 16:55: 00 No 0.4 mg, Route: IVP, Q2MIN, Dosing Weight 122.273, kg, PRN Narcotic Reversal, Start date: 11/08/20 10:55:00 [employer], Duration: 8 doses or times, Stop date: Limited # of times Lorraine Gomez Ondansetron 2019-11 16:55: 00 No 4 mg, Route: IVP, ONCE, Dosing Weight 122.273, kg, PRN Nausea & Vomiting, Start date: 11/08/20 10:55:00 [employer] Lorraine Gomez Lactated Ringers Injection IV (ANES) 1000 mL 2019-11 16:23: 00 No Route: IV, Total Volume: 1,000, Start date: 11/08/20 10:23:00 [employer], Stop date: 11/08/20 11:23:00 [employer] Lorraine Gomez ceFAZolin + sterile water 30 mL 2019-11 04:00: 00 No Notes: (Same As: Alex Turcios) MEDICATION WASTE Product Size: 1000 mg Product Wasted: ___ mg Lorraine Gomez scopolamine 2019-11 04:00: 00 No Notes: Change patch every 72 hours (Same as: Transderm- Scop) Lorraine Gomez Lactated Ringers Injection IV 1,000 mL 2019-11 03:52: 00 No 1,000 mL, Rate: as directed, Route: IV, Dosing Weight 122.273 kg, Total Volume: 1,000, Start date: 11/07/20 21:52:00 [employer], Stop date: 11/08/20 23:00:00 [employer], 2.43, m2, 0 Memmarcia Gomez Spironolact one 2019-11 13:50: 00 Yes 75 mg, PO, BID, # 60 tab, 0 Refill(s) Memmarcia Lawsonann Wellbutrin 2019-11 13:50: 00 Yes PO, 0 Refill(s) Memmarcia Gomez Effexor 2019-11 13:50: 00 Yes 75 mg, PO, Daily, 0 Refill(s) Lorraine Gomez 24 HR Metformin hydrochlori de 500 MG Extended Release Tablet [Fortamet] 02-26 16:00: 00 Yes 2, 2 a day, 0 Refill(s) Lorraine Gomez ketorolac (TORADOL) injection 30 mg 02-10 05:15: 00 02-10 04:09 :00 No 30mg 30 mg, Slow IV Push, ONCE, 1 dose, 02/11/20 at 0015, Routine
social work faculty member approving Restricted medication : GINA GUILLEN [facility] acute hospital oxybutynin XL 5 mg 24 hr tablet 02-10 00:00: 02-18 04:59 :00 No [id number] 5mg Take 1 tablet by mouth daily for 7 days. [facility] acute hospital naproxen 375 mg tablet 02-10 00:00: 02-18 04:59 :00 No [id number] 375mg Take 1 tablet by mouth 3 (three) times daily with meals for 7 days. [facility] acute hospital metFORMIN 500 mg tablet 03-28 15:23: 33 Yes 500mg Take 500 mg by mouth 2 (two) times daily with meals. [facility] acute hospital ethynodiol d-ethinyl estradiol ([facility] , 28, ORAL) 03-28 15:23: 33 Yes Take by mouth. [facility] acute hospital metFORMIN 500 mg tablet 03-28 10:23: 33 Yes 500mg Take 500 mg by mouth 2 (two) times daily with meals. General acute hospital ethynodiol d-ethinyl estradiol (KELNOR 35, 28, ORAL) 03-28 10:23: 33 Yes Take by mouth. [facility] ondansetron 4 mg disintegrat ing tablet 03-28 00:00: 00 Yes [id number] 4mg Take 1 tablet by mouth every 8 (eight) hours as needed for Nausea and Vomiting (N/V). [facility] Meloxicam 7.5 MG Meloxicam 7.5 MG No 1{table t} QD Meloxicam 7.5 MG clindamycin 2 % vaginal cream Insert 1 applicatorf ul twice a week by vaginal route for 90 days. clindamycin 2 % vaginal cream Insert 1 applicatorf ul twice a week by vaginal route for 90 days. No 1applic ator(s) ful Q3.5D clindamyci n 2 % vaginal cream Insert 1 applicator ful twice a week by vaginal route for 90 days. [facility] Diflucan 150 mg tablet take 1 tablet by mouth now and again in 72 hours, then once a week for 12 weeks Diflucan 150 mg tablet take 1 tablet by mouth now and again in 72 hours, then once a week for 12 weeks No Diflucan 150 mg tablet take 1 tablet by mouth now and again in 72 hours, then once a week for 12 weeks [facility] azelaic acid 15 % topical gel azelaic acid 15 % topical gel No azelaic acid 15 % topical gel [facility] Cetrotide 0.25 mg subcutaneou s kit Cetrotide 0.25 mg subcutaneou s kit No Cetrotide 0.25 mg subcutaneo us kit [facility] clindamycin 1 % lotion clindamycin 1 % lotion No clindamyci n 1 % lotion [facility] doxylamine 10 mg-pyridoxi ne (vit B6) 10 mg tablet,balbir yed release TAKE ONE TABLET BY ORAL ROUTE IN THE MORNING, ONE TABLET MID AFTERNOON, AND TWO TABLETS AT BEDTIME. doxylamine 10 mg-pyridoxi ne (vit B6) 10 mg tablet,balbir yed release TAKE ONE TABLET BY ORAL ROUTE IN THE MORNING, ONE TABLET MID AFTERNOON, AND TWO TABLETS AT BEDTIME. No doxylamine 10 mg-pyridox ine (vit B6) 10 mg tablet,del ayed release TAKE ONE TABLET BY ORAL ROUTE IN THE MORNING, ONE TABLET MID AFTERNOON, AND TWO TABLETS AT BEDTIME. [facility] estradiol 2 mg tablet TAKE ONE TABLET BY MOUTH SUBLINGUALL Y TWICE A DAY THEN INCREASE TO THREE TIMES A DAY estradiol 2 mg tablet TAKE ONE TABLET BY MOUTH SUBLINGUALL Y TWICE A DAY THEN INCREASE TO THREE TIMES A DAY No estradiol 2 mg tablet TAKE ONE TABLET BY MOUTH SUBLINGUAL LY TWICE A DAY THEN INCREASE TO THREE TIMES A DAY [facility] folic acid 1 mg tablet TAKE 1 TABLET BY MOUTH EVERY DAY folic acid 1 mg tablet TAKE 1 TABLET BY MOUTH EVERY DAY No folic acid 1 mg tablet TAKE 1 TABLET BY MOUTH EVERY DAY [facility] Gonal-F RFF Redi-Ject 900 unit/1.5 mL subcutaneou s pen injector Gonal-F RFF Redi-Ject 900 unit/1.5 mL subcutaneou s pen injector No Gonal-F RFF Redi-Ject 900 unit/1.5 mL subcutaneo us pen injector [facility] levothyroxi ne 75 mcg tablet TAKE 1 TABLET BY MOUTH EVERY DAY IN THE MORNING ON EMPTY STOMACH FOR 90 DAYS levothyroxi ne 75 mcg tablet TAKE 1 TABLET BY MOUTH EVERY DAY IN THE MORNING ON EMPTY STOMACH FOR 90 DAYS No levothyrox ine 75 mcg tablet TAKE 1 TABLET BY MOUTH EVERY DAY IN THE MORNING ON EMPTY STOMACH FOR 90 DAYS [facility] metformin ER 500 mg tablet,exte nded release 24 hr TAKE 2 TABLETS BY MOUTH WITH EVENING MEAL ONCE A DAY 90 DAYS metformin ER 500 mg tablet,exte nded release 24 hr TAKE 2 TABLETS BY MOUTH WITH EVENING MEAL ONCE A DAY 90 DAYS No metformin ER 500 mg tablet,ext ended release 24 hr TAKE 2 TABLETS BY MOUTH WITH EVENING MEAL ONCE A DAY 90 DAYS [facility] metoclopram daniella 10 mg tablet TAKE 1 TABLET BY MOUTH THREE TIMES A DAY FOR 30 DAYS metoclopram daniella 10 mg tablet TAKE 1 TABLET BY MOUTH THREE TIMES A DAY FOR 30 DAYS No metoclopra mide 10 mg tablet TAKE 1 TABLET BY MOUTH THREE TIMES A DAY FOR 30 DAYS [facility] ondansetron 8 mg disintegrat ing tablet PLACE 1 TABLET ON TOP OF THE TONGUE EVERY 8 HOURS NEEDED FOR NAUSEA ondansetron [address] disintegrat ing tablet PLACE 1 TABLET ON TOP OF THE TONGUE EVERY 8 HOURS NEEDED FOR NAUSEA No ondansetro n 8 mg disintegra ting tablet PLACE 1 TABLET ON TOP OF THE TONGUE EVERY 8 HOURS NEEDED FOR NAUSEA [facility] pantoprazol e 40 mg tablet,balbir yed release TAKE 1 TABLET BY MOUTH EVERY DAY pantoprazol e 40 mg tablet,balbir yed release TAKE 1 TABLET BY MOUTH EVERY DAY No pantoprazo le 40 mg tablet,del ayed release TAKE 1 TABLET BY MOUTH EVERY DAY [facility] Prenate Mini (ferrous asparto glycinate) 18 mg-1 mg-350 mg capsule Take by oral route for 90 days. Prenate Mini (ferrous asparto glycinate) 18 mg-1 mg-350 mg capsule Take by oral route for 90 days. No Prenate Mini (ferrous asparto glycinate) 18 mg-1 mg-350 mg capsule Take by oral route for 90 days. [facility] progesteron e micronized 200 mg capsule TAKE 1 CAPSULE BY MOUTH TWICE A DAY progesteron e micronized 200 mg capsule TAKE 1 CAPSULE BY MOUTH TWICE A DAY No progestero ne micronized 200 mg capsule TAKE 1 CAPSULE BY MOUTH TWICE A DAY [facility] promethazin e 25 mg tablet TAKE ONE (1) TABLET BY MOUTH EVERY 6 HOURS NEEDED FOR NAUSEA promethazin e 25 mg tablet TAKE ONE (1) TABLET BY MOUTH EVERY 6 HOURS NEEDED FOR NAUSEA No promethazi ne 25 mg tablet TAKE ONE (1) TABLET BY MOUTH EVERY 6 HOURS NEEDED FOR NAUSEA [facility] Vitafol Ultra 29 mg iron-1 mg-200 mg capsule Take 1 capsule every day by oral route. Vitafol Ultra 29 mg iron-1 mg-200 mg capsule Take 1 capsule every day by oral route. No 1capsul e(s) Q1D Vitafol Ultra 29 mg iron-1 mg-200 mg capsule Take 1 capsule every day by oral route. [facility] azelaic acid 15 % topical gel azelaic acid 15 % topical gel No azelaic acid 15 % topical gel [facility] Cetrotide 0.25 mg subcutaneou s kit Cetrotide 0.25 mg subcutaneou s kit No Cetrotide 0.25 mg subcutaneo us kit [facility] clindamycin 1 % lotion clindamycin 1 % lotion No clindamyci n 1 % lotion [facility] doxylamine 10 mg-pyridoxi ne (vit B6) 10 mg tablet,balbir yed release TAKE ONE TABLET BY ORAL ROUTE IN THE MORNING, ONE TABLET MID AFTERNOON, AND TWO TABLETS AT BEDTIME. doxylamine 10 mg-pyridoxi ne (vit B6) 10 mg tablet,balbir yed release TAKE ONE TABLET BY ORAL ROUTE IN THE MORNING, ONE TABLET MID AFTERNOON, AND TWO TABLETS AT BEDTIME. No doxylamine 10 mg-pyridox ine (vit B6) 10 mg tablet,del ayed release TAKE ONE TABLET BY ORAL ROUTE IN THE MORNING, ONE TABLET MID AFTERNOON, AND TWO TABLETS AT BEDTIME. [facility] estradiol 2 mg tablet TAKE ONE TABLET BY MOUTH SUBLINGUALL Y TWICE A DAY THEN INCREASE TO THREE TIMES A DAY estradiol 2 mg tablet TAKE ONE TABLET BY MOUTH SUBLINGUALL Y TWICE A DAY THEN INCREASE TO THREE TIMES A DAY No estradiol 2 mg tablet TAKE ONE TABLET BY MOUTH SUBLINGUAL LY TWICE A DAY THEN INCREASE TO THREE TIMES A DAY [facility] folic acid 1 mg tablet TAKE 1 TABLET BY MOUTH EVERY DAY folic acid 1 mg tablet TAKE 1 TABLET BY MOUTH EVERY DAY No folic acid 1 mg tablet TAKE 1 TABLET BY MOUTH EVERY DAY [facility] Gonal-F RFF Redi-Ject 900 unit/1.5 mL subcutaneou s pen injector Gonal-F RFF Redi-Ject 900 unit/1.5 mL subcutaneou s pen injector No Gonal-F RFF Redi-Ject 900 unit/1.5 mL subcutaneo us pen injector [facility] levothyroxi ne 75 mcg tablet TAKE 1 TABLET BY MOUTH EVERY DAY IN THE MORNING ON EMPTY STOMACH FOR 90 DAYS levothyroxi ne 75 mcg tablet TAKE 1 TABLET BY MOUTH EVERY DAY IN THE MORNING ON EMPTY STOMACH FOR 90 DAYS No levothyrox ine 75 mcg tablet TAKE 1 TABLET BY MOUTH EVERY DAY IN THE MORNING ON EMPTY STOMACH FOR 90 DAYS [facility] metformin ER 500 mg tablet,exte nded release 24 hr TAKE 2 TABLETS BY MOUTH WITH EVENING MEAL ONCE A DAY 90 DAYS metformin ER 500 mg tablet,exte nded release 24 hr TAKE 2 TABLETS BY MOUTH WITH EVENING MEAL ONCE A DAY 90 DAYS No metformin ER 500 mg tablet,ext ended release 24 hr TAKE 2 TABLETS BY MOUTH WITH EVENING MEAL ONCE A DAY 90 DAYS [facility] metoclopram daniella 10 mg tablet TAKE 1 TABLET BY MOUTH THREE TIMES A DAY FOR 30 DAYS metoclopram daniella 10 mg tablet TAKE 1 TABLET BY MOUTH THREE TIMES A DAY FOR 30 DAYS No metoclopra mide 10 mg tablet TAKE 1 TABLET BY MOUTH THREE TIMES A DAY FOR 30 DAYS [facility] ondansetron 8 mg disintegrat ing tablet PLACE 1 TABLET ON TOP OF THE TONGUE EVERY 8 HOURS NEEDED FOR NAUSEA ondansetron 8 mg disintegrat ing tablet PLACE 1 TABLET ON TOP OF THE TONGUE EVERY 8 HOURS NEEDED FOR NAUSEA No ondansetro n 8 mg disintegra ting tablet PLACE 1 TABLET ON TOP OF THE TONGUE EVERY 8 HOURS NEEDED FOR NAUSEA [facility] pantoprazol e 40 mg tablet,balbir yed release TAKE 1 TABLET BY MOUTH EVERY DAY pantoprazol e 40 mg tablet,balbir yed release TAKE 1 TABLET BY MOUTH EVERY DAY No pantoprazo le 40 mg tablet,del ayed release TAKE 1 TABLET BY MOUTH EVERY DAY [facility] Prenate Mini (ferrous asparto glycinate) 18 mg-1 mg-350 mg capsule Take by oral route for 90 days. Prenate Mini (ferrous asparto glycinate) 18 mg-1 mg-350 mg capsule Take by oral route for 90 days. No Prenate Mini (ferrous asparto glycinate) 18 mg-1 mg-350 mg capsule Take by oral route for 90 days. [facility] progesteron e micronized 200 mg capsule TAKE 1 CAPSULE BY MOUTH TWICE A DAY progesteron e micronized 200 mg capsule TAKE 1 CAPSULE BY MOUTH TWICE A DAY No progestero ne micronized 200 mg capsule TAKE 1 CAPSULE BY MOUTH TWICE A DAY [facility] promethazin e 25 mg tablet TAKE ONE (1) TABLET BY MOUTH EVERY 6 HOURS NEEDED FOR NAUSEA promethazin e 25 mg tablet TAKE ONE (1) TABLET BY MOUTH EVERY 6 HOURS NEEDED FOR NAUSEA No promethazi ne 25 mg tablet TAKE ONE (1) TABLET BY MOUTH EVERY 6 HOURS NEEDED FOR NAUSEA [facility] Vitafol Ultra 29 mg iron-1 mg-200 mg capsule Take 1 capsule every day by oral route. Vitafol Ultra 29 mg iron-1 mg-200 mg capsule Take 1 capsule every day by oral route. No 1capsul e(s) Q1D Vitafol Ultra 29 mg iron-1 mg-200 mg capsule Take 1 capsule every day by oral route. [facility] Anusol-HC 25 mg rectal suppository Insert 1 suppository twice a day by rectal route for 14 days. Anusol-HC 25 mg rectal suppository Insert 1 suppository twice a day by rectal route for 14 days. No 1suppos itor(y/ ies) BID Anusol-HC 25 mg rectal suppositor y Insert 1 suppositor y twice a day by rectal route for 14 days. [facility] azelaic acid 15 % topical gel azelaic acid 15 % topical gel No azelaic acid 15 % topical gel [facility] Cetrotide 0.25 mg subcutaneou s kit Cetrotide 0.25 mg subcutaneou s kit No Cetrotide 0.25 mg subcutaneo us kit [facility] clindamycin 1 % lotion clindamycin 1 % lotion No clindamyci n 1 % lotion [facility] doxylamine 10 mg-pyridoxi ne (vit B6) 10 mg tablet,balbir yed release TAKE ONE TABLET BY ORAL ROUTE IN THE MORNING, ONE TABLET MID AFTERNOON, AND TWO TABLETS AT BEDTIME. doxylamine 10 mg-pyridoxi ne (vit B6) 10 mg tablet,balbir yed release TAKE ONE TABLET BY ORAL ROUTE IN THE MORNING, ONE TABLET MID AFTERNOON, AND TWO TABLETS AT BEDTIME. No doxylamine 10 mg-pyridox ine (vit B6) 10 mg tablet,del ayed release TAKE ONE TABLET BY ORAL ROUTE IN THE MORNING, ONE TABLET MID AFTERNOON, AND TWO TABLETS AT BEDTIME. [facility] estradiol 2 mg tablet TAKE ONE TABLET BY MOUTH SUBLINGUALL Y TWICE A DAY THEN INCREASE TO THREE TIMES A DAY estradiol 2 mg tablet TAKE ONE TABLET BY MOUTH SUBLINGUALL Y TWICE A DAY THEN INCREASE TO THREE TIMES A DAY No estradiol 2 mg tablet TAKE ONE TABLET BY MOUTH SUBLINGUAL LY TWICE A DAY THEN INCREASE TO THREE TIMES A DAY [facility] ferrous gluconate 240 mg (27 mg iron) tablet TAKE 1 TABLET BY MOUTH EVERY DAY ferrous gluconate 240 mg (27 mg iron) tablet TAKE 1 TABLET BY MOUTH EVERY DAY No ferrous gluconate 240 mg (27 mg iron) tablet TAKE 1 TABLET BY MOUTH EVERY DAY [facility] folic acid 1 mg tablet TAKE 1 TABLET BY MOUTH EVERY DAY folic acid 1 mg tablet TAKE 1 TABLET BY MOUTH EVERY DAY No folic acid 1 mg tablet TAKE 1 TABLET BY MOUTH EVERY DAY [facility] levothyroxi ne 75 mcg tablet TAKE 1 TABLET BY MOUTH EVERY DAY IN THE MORNING ON EMPTY STOMACH FOR 90 DAYS levothyroxi ne 75 mcg tablet TAKE 1 TABLET BY MOUTH EVERY DAY IN THE MORNING ON EMPTY STOMACH FOR 90 DAYS No levothyrox ine 75 mcg tablet TAKE 1 TABLET BY MOUTH EVERY DAY IN THE MORNING ON EMPTY STOMACH FOR 90 DAYS [facility] metoclopram daniella 10 mg tablet TAKE 1 TABLET BY MOUTH THREE TIMES A DAY FOR 30 DAYS metoclopram daniella 10 mg tablet TAKE 1 TABLET BY MOUTH THREE TIMES A DAY FOR 30 DAYS No metoclopra mide 10 mg tablet TAKE 1 TABLET BY MOUTH THREE TIMES A DAY FOR 30 DAYS [facility] ondansetron 8 mg disintegrat ing tablet PLACE 1 TABLET ON TOP OF THE TONGUE EVERY 8 HOURS NEEDED FOR NAUSEA ondansetron 8 mg disintegrat ing tablet PLACE 1 TABLET ON TOP OF THE TONGUE EVERY 8 HOURS NEEDED FOR NAUSEA No ondansetro n 8 mg disintegra ting tablet PLACE 1 TABLET ON TOP OF THE TONGUE EVERY 8 HOURS NEEDED FOR NAUSEA [facility] pantoprazol e 40 mg tablet,balbir yed release TAKE 1 TABLET BY MOUTH EVERY DAY pantoprazol e 40 mg tablet,balbir yed release TAKE 1 TABLET BY MOUTH EVERY DAY No pantoprazo le 40 mg tablet,del ayed release TAKE 1 TABLET BY MOUTH EVERY DAY [facility] Prenate Mini (ferrous asparto glycinate) 18 mg-1 mg-350 mg capsule Take by oral route for 90 days. Prenate Mini (ferrous asparto glycinate) 18 mg-1 mg-350 mg capsule Take by oral route for 90 days. No Prenate Mini (ferrous asparto glycinate) 18 mg-1 mg-350 mg capsule Take by oral route for 90 days. [facility] progesteron e micronized 200 mg capsule TAKE 1 CAPSULE BY MOUTH TWICE A DAY progesteron e micronized 200 mg capsule TAKE 1 CAPSULE BY MOUTH TWICE A DAY No progestero ne micronized 200 mg capsule TAKE 1 CAPSULE BY MOUTH TWICE A DAY [facility] promethazin e 25 mg tablet TAKE ONE (1) TABLET BY MOUTH EVERY 6 HOURS NEEDED FOR NAUSEA promethazin e 25 mg tablet TAKE ONE (1) TABLET BY MOUTH EVERY 6 HOURS NEEDED FOR NAUSEA No promethazi ne 25 mg tablet TAKE ONE (1) TABLET BY MOUTH EVERY 6 HOURS NEEDED FOR NAUSEA [facility] terconazole 0.4 % vaginal cream Insert 1 applicatorf ul every day by vaginal route at bedtime for 7 days. terconazole 0.4 % vaginal cream Insert 1 applicatorf ul every day by vaginal route at bedtime for 7 days. No terconazol e 0.4 % vaginal cream Insert 1 applicator ful every day by vaginal route at bedtime for 7 days. [facility] Vitafol Ultra 29 mg iron-1 mg-200 mg capsule Take 1 capsule every day by oral route. Vitafol Ultra 29 mg iron-1 mg-200 mg capsule Take 1 capsule every day by oral route. No 1capsul e(s) Q1D Vitafol Ultra 29 mg iron-1 mg-200 mg capsule Take 1 capsule every day by oral route. [facility] Anusol-HC 25 mg rectal suppository Insert 1 suppository twice a day by rectal route for 14 days. Anusol-HC 25 mg rectal suppository Insert 1 suppository twice a day by rectal route for 14 days. No 1suppos itor(y/ ies) BID Anusol-HC 25 mg rectal suppositor y Insert 1 suppositor y twice a day by rectal route for 14 days. [facility] azelaic acid 15 % topical gel azelaic acid 15 % topical gel No azelaic acid 15 % topical gel [facility] Cetrotide 0.25 mg subcutaneou s kit Cetrotide 0.25 mg subcutaneou s kit No Cetrotide 0.25 mg subcutaneo us kit [facility] clindamycin 1 % lotion clindamycin 1 % lotion No clindamyci n 1 % lotion [facility] doxylamine 10 mg-pyridoxi ne (vit B6) 10 mg tablet,balbir yed release TAKE ONE TABLET BY ORAL ROUTE IN THE MORNING, ONE TABLET MID AFTERNOON, AND TWO TABLETS AT BEDTIME. doxylamine 10 mg-pyridoxi ne (vit B6) 10 mg tablet,balbir yed release TAKE ONE TABLET BY ORAL ROUTE IN THE MORNING, ONE TABLET MID AFTERNOON, AND TWO TABLETS AT BEDTIME. No doxylamine 10 mg-pyridox ine (vit B6) 10 mg tablet,del ayed release TAKE ONE TABLET BY ORAL ROUTE IN THE MORNING, ONE TABLET MID AFTERNOON, AND TWO TABLETS AT BEDTIME. [facility] estradiol 2 mg tablet TAKE ONE TABLET BY MOUTH SUBLINGUALL Y TWICE A DAY THEN INCREASE TO THREE TIMES A DAY estradiol 2 mg tablet TAKE ONE TABLET BY MOUTH SUBLINGUALL Y TWICE A DAY THEN INCREASE TO THREE TIMES A DAY No estradiol 2 mg tablet TAKE ONE TABLET BY MOUTH SUBLINGUAL LY TWICE A DAY THEN INCREASE TO THREE TIMES A DAY [facility] ferrous gluconate 240 mg (27 mg iron) tablet TAKE 1 TABLET BY MOUTH EVERY DAY ferrous gluconate 240 mg (27 mg iron) tablet TAKE 1 TABLET BY MOUTH EVERY DAY No ferrous gluconate 240 mg (27 mg iron) tablet TAKE 1 TABLET BY MOUTH EVERY DAY [facility] folic acid 1 mg tablet TAKE 1 TABLET BY MOUTH EVERY DAY folic acid 1 mg tablet TAKE 1 TABLET BY MOUTH EVERY DAY No folic acid 1 mg tablet TAKE 1 TABLET BY MOUTH EVERY DAY [facility] levothyroxi ne 75 mcg tablet TAKE 1 TABLET BY MOUTH EVERY DAY IN THE MORNING ON EMPTY STOMACH FOR 90 DAYS levothyroxi ne 75 mcg tablet TAKE 1 TABLET BY MOUTH EVERY DAY IN THE MORNING ON EMPTY STOMACH FOR 90 DAYS No levothyrox ine 75 mcg tablet TAKE 1 TABLET BY MOUTH EVERY DAY IN THE MORNING ON EMPTY STOMACH FOR 90 DAYS [facility] metoclopram daniella 10 mg tablet TAKE 1 TABLET BY MOUTH THREE TIMES A DAY FOR 30 DAYS metoclopram daniella 10 mg tablet TAKE 1 TABLET BY MOUTH THREE TIMES A DAY FOR 30 DAYS No metoclopra mide 10 mg tablet TAKE 1 TABLET BY MOUTH THREE TIMES A DAY FOR 30 DAYS [facility] ondansetron 8 mg disintegrat ing tablet PLACE 1 TABLET ON TOP OF THE TONGUE EVERY 8 HOURS NEEDED FOR NAUSEA ondansetron 8 mg disintegrat ing tablet PLACE 1 TABLET ON TOP OF THE TONGUE EVERY 8 HOURS NEEDED FOR NAUSEA No ondansetro n 8 mg disintegra ting tablet PLACE 1 TABLET ON TOP OF THE TONGUE EVERY 8 HOURS NEEDED FOR NAUSEA [facility] OneTouch Ultra Test strips USE ONE (1) GLUCOSE STRIP FOUR TIMES DAILY TO CHECK GLUCOSE LEVELS. OneTouch Ultra Test strips USE ONE (1) GLUCOSE STRIP FOUR TIMES DAILY TO CHECK GLUCOSE LEVELS. No OneTouch Ultra Test strips USE ONE (1) GLUCOSE STRIP FOUR TIMES DAILY TO CHECK GLUCOSE LEVELS. [facility] OneTouch Ultra2 Meter USE DIRECTED OneTouch Ultra2 Meter USE DIRECTED No OneTouch Ultra2 Meter USE DIRECTED [facility] OneTouch UltraSoft Lancets USE ONE (1) LANCET FOUR (4) TIMES DAILY TO CHECK GLUCOSE LEVEL. OneTouch UltraSoft Lancets USE ONE (1) LANCET FOUR (4) TIMES DAILY TO CHECK GLUCOSE LEVEL. No OneTouch UltraSoft Lancets USE ONE (1) LANCET FOUR (4) TIMES DAILY TO CHECK GLUCOSE LEVEL. [facility] pantoprazol e 40 mg tablet,balbir yed release TAKE 1 TABLET BY MOUTH EVERY DAY pantoprazol e 40 mg tablet,balbir yed release TAKE 1 TABLET BY MOUTH EVERY DAY No pantoprazo le 40 mg tablet,del ayed release TAKE 1 TABLET BY MOUTH EVERY DAY [facility] Prenate Mini (ferrous asparto glycinate) 18 mg-1 mg-350 mg capsule Take by oral route for 90 days. Prenate Mini (ferrous asparto glycinate) 18 mg-1 mg-350 mg capsule Take by oral route for 90 days. No Prenate Mini (ferrous asparto glycinate) 18 mg-1 mg-350 mg capsule Take by oral route for 90 days. [facility] terconazole 0.4 % vaginal cream Insert 1 applicatorf ul every day by vaginal route at bedtime for 7 days. terconazole 0.4 % vaginal cream Insert 1 applicatorf ul every day by vaginal route at bedtime for 7 days. No 1applic ator(s) ful Q1D terconazol e 0.4 % vaginal cream Insert 1 applicator ful every day by vaginal route at bedtime for 7 days. [facility] tobramycin 0.3 % eye drops INSTILL 1 DROP INTO AFFECTED EYE(S) BY OPHTHALMIC ROUTE EVERY 4 HOURS tobramycin 0.3 % eye drops INSTILL 1 DROP INTO AFFECTED EYE(S) BY OPHTHALMIC ROUTE EVERY 4 HOURS No tobramycin 0.3 % eye drops INSTILL 1 DROP INTO AFFECTED EYE(S) BY OPHTHALMIC ROUTE EVERY 4 HOURS [facility] Anusol-HC 25 mg rectal suppository Insert 1 suppository twice a day by rectal route for 14 days. Anusol-HC 25 mg rectal suppository Insert 1 suppository twice a day by rectal route for 14 days. No 1suppos itor(y/ ies) BID Anusol-HC 25 mg rectal suppositor y Insert 1 suppositor y twice a day by rectal route for 14 days. [facility] azelaic acid 15 % topical gel azelaic acid 15 % topical gel No azelaic acid 15 % topical gel [facility] Cetrotide 0.25 mg subcutaneou s kit Cetrotide 0.25 mg subcutaneou s kit No Cetrotide 0.25 mg subcutaneo us kit [facility] clindamycin 1 % lotion clindamycin 1 % lotion No clindamyci n 1 % lotion [facility] doxylamine 10 mg-pyridoxi ne (vit B6) 10 mg tablet,balbir yed release TAKE ONE TABLET BY ORAL ROUTE IN THE MORNING, ONE TABLET MID AFTERNOON, AND TWO TABLETS AT BEDTIME. doxylamine 10 mg-pyridoxi ne (vit B6) 10 mg tablet,balbir yed release TAKE ONE TABLET BY ORAL ROUTE IN THE MORNING, ONE TABLET MID AFTERNOON, AND TWO TABLETS AT BEDTIME. No doxylamine 10 mg-pyridox ine (vit B6) 10 mg tablet,del ayed release TAKE ONE TABLET BY ORAL ROUTE IN THE MORNING, ONE TABLET MID AFTERNOON, AND TWO TABLETS AT BEDTIME. [facility] estradiol 2 mg tablet TAKE ONE TABLET BY MOUTH SUBLINGUALL Y TWICE A DAY THEN INCREASE TO THREE TIMES A DAY estradiol 2 mg tablet TAKE ONE TABLET BY MOUTH SUBLINGUALL Y TWICE A DAY THEN INCREASE TO THREE TIMES A DAY No estradiol 2 mg tablet TAKE ONE TABLET BY MOUTH SUBLINGUAL LY TWICE A DAY THEN INCREASE TO THREE TIMES A DAY [facility] ferrous gluconate 240 mg (27 mg iron) tablet TAKE 1 TABLET BY MOUTH EVERY DAY ferrous gluconate 240 mg (27 mg iron) tablet TAKE 1 TABLET BY MOUTH EVERY DAY No ferrous gluconate 240 mg (27 mg iron) tablet TAKE 1 TABLET BY MOUTH EVERY DAY [facility] folic acid 1 mg tablet TAKE 1 TABLET BY MOUTH EVERY DAY folic acid 1 mg tablet TAKE 1 TABLET BY MOUTH EVERY DAY No folic acid 1 mg tablet TAKE 1 TABLET BY MOUTH EVERY DAY [facility] levothyroxi ne 75 mcg tablet TAKE 1 TABLET BY MOUTH EVERY DAY IN THE MORNING ON EMPTY STOMACH FOR 90 DAYS levothyroxi ne 75 mcg tablet TAKE 1 TABLET BY MOUTH EVERY DAY IN THE MORNING ON EMPTY STOMACH FOR 90 DAYS No levothyrox ine 75 mcg tablet TAKE 1 TABLET BY MOUTH EVERY DAY IN THE MORNING ON EMPTY STOMACH FOR 90 DAYS [facility] metoclopram daniella 10 mg tablet TAKE 1 TABLET BY MOUTH THREE TIMES A DAY FOR 30 DAYS metoclopram daniella 10 mg tablet TAKE 1 TABLET BY MOUTH THREE TIMES A DAY FOR 30 DAYS No metoclopra mide 10 mg tablet TAKE 1 TABLET BY MOUTH THREE TIMES A DAY FOR 30 DAYS [facility] ondansetron 8 mg disintegrat ing tablet PLACE 1 TABLET ON TOP OF THE TONGUE EVERY 8 HOURS NEEDED FOR NAUSEA ondansetron 8 mg disintegrat ing tablet PLACE 1 TABLET ON TOP OF THE TONGUE EVERY 8 HOURS NEEDED FOR NAUSEA No ondansetro n 8 mg disintegra ting tablet PLACE 1 TABLET ON TOP OF THE TONGUE EVERY 8 HOURS NEEDED FOR NAUSEA [facility] OneTouch Ultra Test strips USE ONE (1) GLUCOSE STRIP FOUR TIMES DAILY TO CHECK GLUCOSE LEVELS. OneTouch Ultra Test strips USE ONE (1) GLUCOSE STRIP FOUR TIMES DAILY TO CHECK GLUCOSE LEVELS. No OneTouch Ultra Test strips USE ONE (1) GLUCOSE STRIP FOUR TIMES DAILY TO CHECK GLUCOSE LEVELS. [facility] OneTouch Ultra2 Meter USE DIRECTED OneTouch Ultra2 Meter USE DIRECTED No OneTouch Ultra2 Meter USE DIRECTED [facility] OneTouch UltraSoft Lancets USE ONE (1) LANCET FOUR (4) TIMES DAILY TO CHECK GLUCOSE LEVEL. OneTouch UltraSoft Lancets USE ONE (1) LANCET FOUR (4) TIMES DAILY TO CHECK GLUCOSE LEVEL. No OneTouch UltraSoft Lancets USE ONE (1) LANCET FOUR (4) TIMES DAILY TO CHECK GLUCOSE LEVEL. [facility] pantoprazol e 40 mg tablet,balbir yed release TAKE 1 TABLET BY MOUTH EVERY DAY pantoprazol e 40 mg tablet,balbir yed release TAKE 1 TABLET BY MOUTH EVERY DAY No pantoprazo le 40 mg tablet,del ayed release TAKE 1 TABLET BY MOUTH EVERY DAY [facility] Prenate Mini (ferrous asparto glycinate) 18 mg-1 mg-350 mg capsule Take by oral route for 90 days. Prenate Mini (ferrous asparto glycinate) 18 mg-1 mg-350 mg capsule Take by oral route for 90 days. No Prenate Mini (ferrous asparto glycinate) 18 mg-1 mg-350 mg capsule Take by oral route for 90 days. [facility] terconazole 0.4 % vaginal cream INSERT 1 APPLICATORF UL VAGINALLY EVERY DAY AT BEDTIME FOR 7 DAYS terconazole 0.4 % vaginal cream INSERT 1 APPLICATORF UL VAGINALLY EVERY DAY AT BEDTIME FOR 7 DAYS No terconazol e 0.4 % vaginal cream INSERT 1 APPLICATOR FUL VAGINALLY EVERY DAY AT BEDTIME FOR 7 DAYS [facility] tobramycin 0.3 % eye drops INSTILL 1 DROP INTO AFFECTED EYE EVERY 4 HOURS tobramycin 0.3 % eye drops INSTILL 1 DROP INTO AFFECTED EYE EVERY 4 HOURS No tobramycin 0.3 % eye drops INSTILL 1 DROP INTO AFFECTED EYE EVERY 4 HOURS [facility] Anusol-HC 25 mg rectal suppository Insert 1 suppository twice a day by rectal route for 14 days. Anusol-HC 25 mg rectal suppository Insert 1 suppository twice a day by rectal route for 14 days. No 1suppos itor(y/ ies) BID Anusol-HC 25 mg rectal suppositor y Insert 1 suppositor y twice a day by rectal route for 14 days. [facility] azelaic acid 15 % topical gel azelaic acid 15 % topical gel No azelaic acid 15 % topical gel [facility] Cetrotide 0.25 mg subcutaneou s kit Cetrotide 0.25 mg subcutaneou s kit No Cetrotide 0.25 mg subcutaneo us kit [facility] clindamycin 1 % lotion clindamycin 1 % lotion No clindamyci n 1 % lotion [facility] doxylamine 10 mg-pyridoxi ne (vit B6) 10 mg tablet,balbir yed release TAKE ONE TABLET BY ORAL ROUTE IN THE MORNING, ONE TABLET MID AFTERNOON, AND TWO TABLETS AT BEDTIME. doxylamine 10 mg-pyridoxi ne (vit B6) 10 mg tablet,balbir yed release TAKE ONE TABLET BY ORAL ROUTE IN THE MORNING, ONE TABLET MID AFTERNOON, AND TWO TABLETS AT BEDTIME. No doxylamine 10 mg-pyridox ine (vit B6) 10 mg tablet,del ayed release TAKE ONE TABLET BY ORAL ROUTE IN THE MORNING, ONE TABLET MID AFTERNOON, AND TWO TABLETS AT BEDTIME. [facility] estradiol 2 mg tablet TAKE ONE TABLET BY MOUTH SUBLINGUALL Y TWICE A DAY THEN INCREASE TO THREE TIMES A DAY estradiol 2 mg tablet TAKE ONE TABLET BY MOUTH SUBLINGUALL Y TWICE A DAY THEN INCREASE TO THREE TIMES A DAY No estradiol 2 mg tablet TAKE ONE TABLET BY MOUTH SUBLINGUAL LY TWICE A DAY THEN INCREASE TO THREE TIMES A DAY [facility] ferrous gluconate 240 mg (27 mg iron) tablet TAKE 1 TABLET BY MOUTH EVERY DAY ferrous gluconate 240 mg (27 mg iron) tablet TAKE 1 TABLET BY MOUTH EVERY DAY No ferrous gluconate 240 mg (27 mg iron) tablet TAKE 1 TABLET BY MOUTH EVERY DAY [facility] folic acid 1 mg tablet TAKE 1 TABLET BY MOUTH EVERY DAY folic acid 1 mg tablet TAKE 1 TABLET BY MOUTH EVERY DAY No folic acid 1 mg tablet TAKE 1 TABLET BY MOUTH EVERY DAY [facility] levothyroxi ne 75 mcg tablet TAKE 1 TABLET BY MOUTH EVERY DAY IN THE MORNING ON EMPTY STOMACH FOR 90 DAYS levothyroxi ne 75 mcg tablet TAKE 1 TABLET BY MOUTH EVERY DAY IN THE MORNING ON EMPTY STOMACH FOR 90 DAYS No levothyrox ine 75 mcg tablet TAKE 1 TABLET BY MOUTH EVERY DAY IN THE MORNING ON EMPTY STOMACH FOR 90 DAYS [facility] metoclopram daniella 10 mg tablet TAKE 1 TABLET BY MOUTH THREE TIMES A DAY FOR 30 DAYS metoclopram daniella 10 mg tablet TAKE 1 TABLET BY MOUTH THREE TIMES A DAY FOR 30 DAYS No metoclopra mide 10 mg tablet TAKE 1 TABLET BY MOUTH THREE TIMES A DAY FOR 30 DAYS [facility] ondansetron 8 mg disintegrat ing tablet PLACE 1 TABLET ON TOP OF THE TONGUE EVERY 8 HOURS NEEDED FOR NAUSEA ondansetron 8 mg disintegrat ing tablet PLACE 1 TABLET ON TOP OF THE TONGUE EVERY 8 HOURS NEEDED FOR NAUSEA No ondansetro n 8 mg disintegra ting tablet PLACE 1 TABLET ON TOP OF THE TONGUE EVERY 8 HOURS NEEDED FOR NAUSEA [facility] OneTouch Ultra Test strips USE ONE (1) GLUCOSE STRIP FOUR TIMES DAILY TO CHECK GLUCOSE LEVELS. OneTouch Ultra Test strips USE ONE (1) GLUCOSE STRIP FOUR TIMES DAILY TO CHECK GLUCOSE LEVELS. No OneTouch Ultra Test strips USE ONE (1) GLUCOSE STRIP FOUR TIMES DAILY TO CHECK GLUCOSE LEVELS. [facility] OneTouch Ultra2 Meter USE DIRECTED OneTouch Ultra2 Meter USE DIRECTED No OneTouch Ultra2 Meter USE DIRECTED [facility] OneTouch UltraSoft Lancets USE ONE (1) LANCET FOUR (4) TIMES DAILY TO CHECK GLUCOSE LEVEL. OneTouch UltraSoft Lancets USE ONE (1) LANCET FOUR (4) TIMES DAILY TO CHECK GLUCOSE LEVEL. No OneTouch UltraSoft Lancets USE ONE (1) LANCET FOUR (4) TIMES DAILY TO CHECK GLUCOSE LEVEL. [facility] pantoprazol e 40 mg tablet,balbir yed release TAKE 1 TABLET BY MOUTH EVERY DAY pantoprazol e 40 mg tablet,balbir yed release TAKE 1 TABLET BY MOUTH EVERY DAY No pantoprazo le 40 mg tablet,del ayed release TAKE 1 TABLET BY MOUTH EVERY DAY [facility] Prenate Mini (ferrous asparto glycinate) 18 mg-1 mg-350 mg capsule Take by oral route for 90 days. Prenate Mini (ferrous asparto glycinate) 18 mg-1 mg-350 mg capsule Take by oral route for 90 days. No Prenate Mini (ferrous asparto glycinate) 18 mg-1 mg-350 mg capsule Take by oral route for 90 days. [facility] terconazole 0.4 % vaginal cream INSERT 1 APPLICATORF UL VAGINALLY EVERY DAY AT BEDTIME FOR 7 DAYS terconazole 0.4 % vaginal cream INSERT 1 APPLICATORF UL VAGINALLY EVERY DAY AT BEDTIME FOR 7 DAYS No terconazol e 0.4 % vaginal cream INSERT 1 APPLICATOR FUL VAGINALLY EVERY DAY AT BEDTIME FOR 7 DAYS [facility] tobramycin 0.3 % eye drops INSTILL 1 DROP INTO AFFECTED EYE EVERY 4 HOURS tobramycin 0.3 % eye drops INSTILL 1 DROP INTO AFFECTED EYE EVERY 4 HOURS No tobramycin 0.3 % eye drops INSTILL 1 DROP INTO AFFECTED EYE EVERY 4 HOURS [facility] Anusol-HC 25 mg rectal suppository Insert 1 suppository twice a day by rectal route for 14 days. Anusol-HC 25 mg rectal suppository Insert 1 suppository twice a day by rectal route for 14 days. No 1suppos itor(y/ ies) BID Anusol-HC 25 mg rectal suppositor y Insert 1 suppositor y twice a day by rectal route for 14 days. [facility] azelaic acid 15 % topical gel azelaic acid 15 % topical gel No azelaic acid 15 % topical gel [facility] Cetrotide 0.25 mg subcutaneou s kit Cetrotide 0.25 mg subcutaneou s kit No Cetrotide 0.25 mg subcutaneo us kit [facility] clindamycin 1 % lotion clindamycin 1 % lotion No clindamyci n 1 % lotion [facility] doxylamine 10 mg-pyridoxi ne (vit B6) 10 mg tablet,balbir yed release TAKE ONE TABLET BY ORAL ROUTE IN THE MORNING, ONE TABLET MID AFTERNOON, AND TWO TABLETS AT BEDTIME. doxylamine 10 mg-pyridoxi ne (vit B6) 10 mg tablet,balbir yed release TAKE ONE TABLET BY ORAL ROUTE IN THE MORNING, ONE TABLET MID AFTERNOON, AND TWO TABLETS AT BEDTIME. No doxylamine 10 mg-pyridox ine (vit B6) 10 mg tablet,del ayed release TAKE ONE TABLET BY ORAL ROUTE IN THE MORNING, ONE TABLET MID AFTERNOON, AND TWO TABLETS AT BEDTIME. [facility] estradiol 2 mg tablet TAKE ONE TABLET BY MOUTH SUBLINGUALL Y TWICE A DAY THEN INCREASE TO THREE TIMES A DAY estradiol 2 mg tablet TAKE ONE TABLET BY MOUTH SUBLINGUALL Y TWICE A DAY THEN INCREASE TO THREE TIMES A DAY No estradiol 2 mg tablet TAKE ONE TABLET BY MOUTH SUBLINGUAL LY TWICE A DAY THEN INCREASE TO THREE TIMES A DAY [facility] Gabapentin Gabapentin No Gabapentin ferrous gluconate 240 mg (27 mg iron) tablet TAKE 1 TABLET BY MOUTH EVERY DAY ferrous gluconate 240 mg (27 mg iron) tablet TAKE 1 TABLET BY MOUTH EVERY DAY No ferrous gluconate 240 mg (27 mg iron) tablet TAKE 1 TABLET BY MOUTH EVERY DAY [facility] folic acid 1 mg tablet TAKE 1 TABLET BY MOUTH EVERY DAY folic acid 1 mg tablet TAKE 1 TABLET BY MOUTH EVERY DAY No folic acid 1 mg tablet TAKE 1 TABLET BY MOUTH EVERY DAY [facility] levothyroxi ne 75 mcg tablet TAKE 1 TABLET BY MOUTH EVERY DAY IN THE MORNING ON EMPTY STOMACH FOR 90 DAYS levothyroxi ne 75 mcg tablet TAKE 1 TABLET BY MOUTH EVERY DAY IN THE MORNING ON EMPTY STOMACH FOR 90 DAYS No levothyrox ine 75 mcg tablet TAKE 1 TABLET BY MOUTH EVERY DAY IN THE MORNING ON EMPTY STOMACH FOR 90 DAYS [facility] metoclopram daniella 10 mg tablet TAKE 1 TABLET BY MOUTH THREE TIMES A DAY FOR 30 DAYS metoclopram daniella 10 mg tablet TAKE 1 TABLET BY MOUTH THREE TIMES A DAY FOR 30 DAYS No metoclopra mide 10 mg tablet TAKE 1 TABLET BY MOUTH THREE TIMES A DAY FOR 30 DAYS [facility] ondansetron 8 mg disintegrat ing tablet PLACE 1 TABLET ON TOP OF THE TONGUE EVERY 8 HOURS NEEDED FOR NAUSEA ondansetron 8 mg disintegrat ing tablet PLACE 1 TABLET ON TOP OF THE TONGUE EVERY 8 HOURS NEEDED FOR NAUSEA No ondansetro n 8 mg disintegra ting tablet PLACE 1 TABLET ON TOP OF THE TONGUE EVERY 8 HOURS NEEDED FOR NAUSEA [facility] OneTouch Ultra Test strips USE ONE (1) GLUCOSE STRIP FOUR TIMES DAILY TO CHECK GLUCOSE LEVELS. OneTouch Ultra Test strips USE ONE (1) GLUCOSE STRIP FOUR TIMES DAILY TO CHECK GLUCOSE LEVELS. No OneTouch Ultra Test strips USE ONE (1) GLUCOSE STRIP FOUR TIMES DAILY TO CHECK GLUCOSE LEVELS. [facility] OneTouch Ultra2 Meter USE DIRECTED OneTouch Ultra2 Meter USE DIRECTED No OneTouch Ultra2 Meter USE DIRECTED [facility] OneTouch UltraSoft Lancets USE ONE (1) LANCET FOUR (4) TIMES DAILY TO CHECK GLUCOSE LEVEL. OneTouch UltraSoft Lancets USE ONE (1) LANCET FOUR (4) TIMES DAILY TO CHECK GLUCOSE LEVEL. No OneTouch UltraSoft Lancets USE ONE (1) LANCET FOUR (4) TIMES DAILY TO CHECK GLUCOSE LEVEL. [facility] pantoprazol e 40 mg tablet,balbir yed release TAKE 1 TABLET BY MOUTH EVERY DAY pantoprazol e 40 mg tablet,balbir yed release TAKE 1 TABLET BY MOUTH EVERY DAY No pantoprazo le 40 mg tablet,del ayed release TAKE 1 TABLET BY MOUTH EVERY DAY [facility] Prenate Mini (ferrous asparto glycinate) 18 mg-1 mg-350 mg capsule Take by oral route for 90 days. Prenate Mini (ferrous asparto glycinate) 18 mg-1 mg-350 mg capsule Take by oral route for 90 days. No Prenate Mini (ferrous asparto glycinate) 18 mg-1 mg-350 mg capsule Take by oral route for 90 days. [facility] terconazole 0.4 % vaginal cream INSERT 1 APPLICATORF UL VAGINALLY EVERY DAY AT BEDTIME FOR 7 DAYS terconazole 0.4 % vaginal cream INSERT 1 APPLICATORF UL VAGINALLY EVERY DAY AT BEDTIME FOR 7 DAYS No terconazol e 0.4 % vaginal cream INSERT 1 APPLICATOR FUL VAGINALLY EVERY DAY AT BEDTIME FOR 7 DAYS [facility] tobramycin 0.3 % eye drops INSTILL 1 DROP INTO AFFECTED EYE EVERY 4 HOURS tobramycin 0.3 % eye drops INSTILL 1 DROP INTO AFFECTED EYE EVERY 4 HOURS No tobramycin 0.3 % eye drops INSTILL 1 DROP INTO AFFECTED EYE EVERY 4 HOURS [facility] Anusol-HC 25 mg rectal suppository Insert 1 suppository twice a day by rectal route for 14 days. Anusol-HC 25 mg rectal suppository Insert 1 suppository twice a day by rectal route for 14 days. No 1suppos itor(y/ ies) BID Anusol-HC 25 mg rectal suppositor y Insert 1 suppositor y twice a day by rectal route for 14 days. [facility] azelaic acid 15 % topical gel azelaic acid 15 % topical gel No azelaic acid 15 % topical gel [facility] Cetrotide 0.25 mg subcutaneou s kit Cetrotide 0.25 mg subcutaneou s kit No Cetrotide 0.25 mg subcutaneo us kit [facility] clindamycin 1 % lotion clindamycin 1 % lotion No clindamyci n 1 % lotion [facility] doxylamine 10 mg-pyridoxi ne (vit B6) 10 mg tablet,balbir yed release TAKE ONE TABLET BY ORAL ROUTE IN THE MORNING, ONE TABLET MID AFTERNOON, AND TWO TABLETS AT BEDTIME. doxylamine 10 mg-pyridoxi ne (vit B6) 10 mg tablet,balbir yed release TAKE ONE TABLET BY ORAL ROUTE IN THE MORNING, ONE TABLET MID AFTERNOON, AND TWO TABLETS AT BEDTIME. No doxylamine 10 mg-pyridox ine (vit B6) 10 mg tablet,del ayed release TAKE ONE TABLET BY ORAL ROUTE IN THE MORNING, ONE TABLET MID AFTERNOON, AND TWO TABLETS AT BEDTIME. [facility] estradiol 2 mg tablet TAKE ONE TABLET BY MOUTH SUBLINGUALL Y TWICE A DAY THEN INCREASE TO THREE TIMES A DAY estradiol 2 mg tablet TAKE ONE TABLET BY MOUTH SUBLINGUALL Y TWICE A DAY THEN INCREASE TO THREE TIMES A DAY No estradiol 2 mg tablet TAKE ONE TABLET BY MOUTH SUBLINGUAL LY TWICE A DAY THEN INCREASE TO THREE TIMES A DAY [facility] ferrous gluconate 240 mg (27 mg iron) tablet TAKE 1 TABLET BY MOUTH EVERY DAY ferrous gluconate 240 mg (27 mg iron) tablet TAKE 1 TABLET BY MOUTH EVERY DAY No ferrous gluconate 240 mg (27 mg iron) tablet TAKE 1 TABLET BY MOUTH EVERY DAY [facility] folic acid 1 mg tablet TAKE 1 TABLET BY MOUTH EVERY DAY folic acid 1 mg tablet TAKE 1 TABLET BY MOUTH EVERY DAY No folic acid 1 mg tablet TAKE 1 TABLET BY MOUTH EVERY DAY [facility] levothyroxi ne 75 mcg tablet TAKE 1 TABLET BY MOUTH EVERY DAY IN THE MORNING ON EMPTY STOMACH FOR 90 DAYS levothyroxi ne 75 mcg tablet TAKE 1 TABLET BY MOUTH EVERY DAY IN THE MORNING ON EMPTY STOMACH FOR 90 DAYS No levothyrox ine 75 mcg tablet TAKE 1 TABLET BY MOUTH EVERY DAY IN THE MORNING ON EMPTY STOMACH FOR 90 DAYS [facility] metoclopram daniella 10 mg tablet TAKE 1 TABLET BY MOUTH THREE TIMES A DAY FOR 30 DAYS metoclopram daniella 10 mg tablet TAKE 1 TABLET BY MOUTH THREE TIMES A DAY FOR 30 DAYS No metoclopra mide 10 mg tablet TAKE 1 TABLET BY MOUTH THREE TIMES A DAY FOR 30 DAYS [facility] ondansetron 8 mg disintegrat ing tablet PLACE 1 TABLET ON TOP OF THE TONGUE EVERY 8 HOURS NEEDED FOR NAUSEA ondansetron 8 mg disintegrat ing tablet PLACE 1 TABLET ON TOP OF THE TONGUE EVERY 8 HOURS NEEDED FOR NAUSEA No ondansetro n 8 mg disintegra ting tablet PLACE 1 TABLET ON TOP OF THE TONGUE EVERY 8 HOURS NEEDED FOR NAUSEA [facility] OneTouch Ultra Test strips USE ONE (1) GLUCOSE STRIP FOUR TIMES DAILY TO CHECK GLUCOSE LEVELS. OneTouch Ultra Test strips USE ONE (1) GLUCOSE STRIP FOUR TIMES DAILY TO CHECK GLUCOSE LEVELS. No OneTouch Ultra Test strips USE ONE (1) GLUCOSE STRIP FOUR TIMES DAILY TO CHECK GLUCOSE LEVELS. [facility] OneTouch Ultra2 Meter USE DIRECTED OneTouch Ultra2 Meter USE DIRECTED No OneTouch Ultra2 Meter USE DIRECTED [facility] OneTouch UltraSoft Lancets USE ONE (1) LANCET FOUR (4) TIMES DAILY TO CHECK GLUCOSE LEVEL. OneTouch UltraSoft Lancets USE ONE (1) LANCET FOUR (4) TIMES DAILY TO CHECK GLUCOSE LEVEL. No OneTouch UltraSoft Lancets USE ONE (1) LANCET FOUR (4) TIMES DAILY TO CHECK GLUCOSE LEVEL. [facility] pantoprazol e 40 mg tablet,balbir yed release TAKE 1 TABLET BY MOUTH EVERY DAY pantoprazol e 40 mg tablet,balbir yed release TAKE 1 TABLET BY MOUTH EVERY DAY No pantoprazo le 40 mg tablet,del ayed release TAKE 1 TABLET BY MOUTH EVERY DAY [facility] Prenate Mini (ferrous asparto glycinate) 18 mg-1 mg-350 mg capsule Take by oral route for 90 days. Prenate Mini (ferrous asparto glycinate) 18 mg-1 mg-350 mg capsule Take by oral route for 90 days. No Prenate Mini (ferrous asparto glycinate) 18 mg-1 mg-350 mg capsule Take by oral route for 90 days. [facility] terconazole 0.4 % vaginal cream INSERT 1 APPLICATORF UL VAGINALLY EVERY DAY AT BEDTIME FOR 7 DAYS terconazole 0.4 % vaginal cream INSERT 1 APPLICATORF UL VAGINALLY EVERY DAY AT BEDTIME FOR 7 DAYS No terconazol e 0.4 % vaginal cream INSERT 1 APPLICATOR FUL VAGINALLY EVERY DAY AT BEDTIME FOR 7 DAYS [facility] tobramycin 0.3 % eye drops INSTILL 1 DROP INTO AFFECTED EYE EVERY 4 HOURS tobramycin 0.3 % eye drops INSTILL 1 DROP INTO AFFECTED EYE EVERY 4 HOURS No tobramycin 0.3 % eye drops INSTILL 1 DROP INTO AFFECTED EYE EVERY 4 HOURS [facility] Anusol-HC 25 mg rectal suppository Insert 1 suppository twice a day by rectal route for 14 days. Anusol-HC 25 mg rectal suppository Insert 1 suppository twice a day by rectal route for 14 days. No 1suppos itor(y/ ies) BID Anusol-HC 25 mg rectal suppositor y Insert 1 suppositor y twice a day by rectal route for 14 days. [facility] azelaic acid 15 % topical gel azelaic acid 15 % topical gel No azelaic acid 15 % topical gel [facility] Cetrotide 0.25 mg subcutaneou s kit Cetrotide 0.25 mg subcutaneou s kit No Cetrotide 0.25 mg subcutaneo us kit [facility] doxylamine 10 mg-pyridoxi ne (vit B6) 10 mg tablet,balbir yed release TAKE ONE TABLET BY ORAL ROUTE IN THE MORNING, ONE TABLET MID AFTERNOON, AND TWO TABLETS AT BEDTIME. doxylamine 10 mg-pyridoxi ne (vit B6) 10 mg tablet,balbir yed release TAKE ONE TABLET BY ORAL ROUTE IN THE MORNING, ONE TABLET MID AFTERNOON, AND TWO TABLETS AT BEDTIME. No doxylamine 10 mg-pyridox ine (vit B6) 10 mg tablet,del ayed release TAKE ONE TABLET BY ORAL ROUTE IN THE MORNING, ONE TABLET MID AFTERNOON, AND TWO TABLETS AT BEDTIME. [facility] estradiol 2 mg tablet TAKE ONE TABLET BY MOUTH SUBLINGUALL Y TWICE A DAY THEN INCREASE TO THREE TIMES A DAY estradiol 2 mg tablet TAKE ONE TABLET BY MOUTH SUBLINGUALL Y TWICE A DAY THEN INCREASE TO THREE TIMES A DAY No estradiol 2 mg tablet TAKE ONE TABLET BY MOUTH SUBLINGUAL LY TWICE A DAY THEN INCREASE TO THREE TIMES A DAY [facility] ferrous gluconate 240 mg (27 mg iron) tablet TAKE 1 TABLET BY MOUTH EVERY DAY ferrous gluconate 240 mg (27 mg iron) tablet TAKE 1 TABLET BY MOUTH EVERY DAY No ferrous gluconate 240 mg (27 mg iron) tablet TAKE 1 TABLET BY MOUTH EVERY DAY [facility] folic acid 1 mg tablet TAKE 1 TABLET BY MOUTH EVERY DAY folic acid 1 mg tablet TAKE 1 TABLET BY MOUTH EVERY DAY No folic acid 1 mg tablet TAKE 1 TABLET BY MOUTH EVERY DAY [facility] levothyroxi ne 75 mcg tablet TAKE 1 TABLET BY MOUTH EVERY DAY IN THE MORNING ON EMPTY STOMACH FOR 90 DAYS levothyroxi ne 75 mcg tablet TAKE 1 TABLET BY MOUTH EVERY DAY IN THE MORNING ON EMPTY STOMACH FOR 90 DAYS No levothyrox ine 75 mcg tablet TAKE 1 TABLET BY MOUTH EVERY DAY IN THE MORNING ON EMPTY STOMACH FOR 90 DAYS [facility] metoclopram daniella 10 mg tablet TAKE 1 TABLET BY MOUTH THREE TIMES A DAY FOR 30 DAYS metoclopram daniella 10 mg tablet TAKE 1 TABLET BY MOUTH THREE TIMES A DAY FOR 30 DAYS No metoclopra mide 10 mg tablet TAKE 1 TABLET BY MOUTH THREE TIMES A DAY FOR 30 DAYS [facility] ondansetron 8 mg disintegrat ing tablet PLACE 1 TABLET ON TOP OF THE TONGUE EVERY 8 HOURS NEEDED FOR NAUSEA ondansetron 8 mg disintegrat ing tablet PLACE 1 TABLET ON TOP OF THE TONGUE EVERY 8 HOURS NEEDED FOR NAUSEA No ondansetro n 8 mg disintegra ting tablet PLACE 1 TABLET ON TOP OF THE TONGUE EVERY 8 HOURS NEEDED FOR NAUSEA [facility] OneTouch Ultra Test strips USE ONE (1) GLUCOSE STRIP FOUR TIMES DAILY TO CHECK GLUCOSE LEVELS. OneTouch Ultra Test strips USE ONE (1) GLUCOSE STRIP FOUR TIMES DAILY TO CHECK GLUCOSE LEVELS. No OneTouch Ultra Test strips USE ONE (1) GLUCOSE STRIP FOUR TIMES DAILY TO CHECK GLUCOSE LEVELS. [facility] OneTouch Ultra2 Meter USE DIRECTED OneTouch Ultra2 Meter USE DIRECTED No OneTouch Ultra2 Meter USE DIRECTED [facility] OneTouch UltraSoft Lancets USE ONE (1) LANCET FOUR (4) TIMES DAILY TO CHECK GLUCOSE LEVEL. OneTouch UltraSoft Lancets USE ONE (1) LANCET FOUR (4) TIMES DAILY TO CHECK GLUCOSE LEVEL. No OneTouch UltraSoft Lancets USE ONE (1) LANCET FOUR (4) TIMES DAILY TO CHECK GLUCOSE LEVEL. [facility] pantoprazol e 40 mg tablet,balbir yed release TAKE 1 TABLET BY MOUTH EVERY DAY pantoprazol e 40 mg tablet,balbir yed release TAKE 1 TABLET BY MOUTH EVERY DAY No pantoprazo le 40 mg tablet,del ayed release TAKE 1 TABLET BY MOUTH EVERY DAY [facility] Prenate Mini (ferrous asparto glycinate) 18 mg-1 mg-350 mg capsule Take by oral route for 90 days. Prenate Mini (ferrous asparto glycinate) 18 mg-1 mg-350 mg capsule Take by oral route for 90 days. No Prenate Mini (ferrous asparto glycinate) 18 mg-1 mg-350 mg capsule Take by oral route for 90 days. [facility] terconazole 0.4 % vaginal cream INSERT 1 APPLICATORF UL VAGINALLY EVERY DAY AT BEDTIME FOR 7 DAYS terconazole 0.4 % vaginal cream INSERT 1 APPLICATORF UL VAGINALLY EVERY DAY AT BEDTIME FOR 7 DAYS No terconazol e 0.4 % vaginal cream INSERT 1 APPLICATOR FUL VAGINALLY EVERY DAY AT BEDTIME FOR 7 DAYS [facility] tobramycin 0.3 % eye drops INSTILL 1 DROP INTO AFFECTED EYE EVERY 4 HOURS tobramycin 0.3 % eye drops INSTILL 1 DROP INTO AFFECTED EYE EVERY 4 HOURS No tobramycin 0.3 % eye drops INSTILL 1 DROP INTO AFFECTED EYE EVERY 4 HOURS [facility] azelaic acid 15 % topical gel azelaic acid 15 % topical gel No azelaic acid 15 % topical gel [facility] estradiol 2 mg tablet TAKE ONE TABLET BY MOUTH SUBLINGUALL Y TWICE A DAY THEN INCREASE TO THREE TIMES A DAY estradiol 2 mg tablet TAKE ONE TABLET BY MOUTH SUBLINGUALL Y TWICE A DAY THEN INCREASE TO THREE TIMES A DAY No estradiol 2 mg tablet TAKE ONE TABLET BY MOUTH SUBLINGUAL LY TWICE A DAY THEN INCREASE TO THREE TIMES A DAY [facility] levothyroxi ne 75 mcg tablet TAKE 1 TABLET BY MOUTH EVERY DAY IN THE MORNING ON EMPTY STOMACH FOR 90 DAYS levothyroxi ne 75 mcg tablet TAKE 1 TABLET BY MOUTH EVERY DAY IN THE MORNING ON EMPTY STOMACH FOR 90 DAYS No levothyrox ine 75 mcg tablet TAKE 1 TABLET BY MOUTH EVERY DAY IN THE MORNING ON EMPTY STOMACH FOR 90 DAYS [facility] nifedipine ER 30 mg tablet,exte nded release TAKE 1 TABLET BY MOUTH DAILY FOR HYPERTENSIO N nifedipine ER 30 mg tablet,exte nded release TAKE 1 TABLET BY MOUTH DAILY FOR HYPERTENSIO N No nifedipine ER 30 mg tablet,ext ended release TAKE 1 TABLET BY MOUTH DAILY FOR HYPERTENSI ON [facility] norethindro ne (contracept clary) 0.35 mg tablet Take 1 tablet every day by oral route as directed. norethindro ne (contracept clary) 0.35 mg tablet Take 1 tablet every day by oral route as directed. No 1 Q1D norethindr one (contracep tive) 0.35 mg tablet Take 1 tablet every day by oral route as directed. [facility] Anusol-HC 2.5 % topical cream with perineal applicator APPLY A THIN LAYER TO THE AFFECTED AREA(S) BY TOPICAL ROUTE 2-4 TIMESDAILY Anusol-HC 2.5 % topical cream with perineal applicator APPLY A THIN LAYER TO THE AFFECTED AREA(S) BY TOPICAL ROUTE 2-4 TIMESDAILY No Anusol-HC 2.5 % topical cream with perineal applicator APPLY A THIN LAYER TO THE AFFECTED AREA(S) BY TOPICAL ROUTE 2-4 TIMESDAILY [facility] azelaic acid 15 % topical gel azelaic acid 15 % topical gel No azelaic acid 15 % topical gel [facility] Anamaria 0.35 mg tablet TAKE 1 TABLET BY MOUTH EVERY DAY DIRECTED Anamaria 0.35 mg tablet TAKE 1 TABLET BY MOUTH EVERY DAY DIRECTED No Anamaria 0.35 mg tablet TAKE 1 TABLET BY MOUTH EVERY DAY DIRECTED [facility] estradiol 2 mg tablet TAKE ONE TABLET BY MOUTH SUBLINGUALL Y TWICE A DAY THEN INCREASE TO THREE TIMES A DAY estradiol 2 mg tablet TAKE ONE TABLET BY MOUTH SUBLINGUALL Y TWICE A DAY THEN INCREASE TO THREE TIMES A DAY No estradiol 2 mg tablet TAKE ONE TABLET BY MOUTH SUBLINGUAL LY TWICE A DAY THEN INCREASE TO THREE TIMES A DAY [facility] levothyroxi ne 75 mcg tablet TAKE 1 TABLET BY MOUTH EVERY DAY IN THE MORNING ON EMPTY STOMACH FOR 90 DAYS levothyroxi ne 75 mcg tablet TAKE 1 TABLET BY MOUTH EVERY DAY IN THE MORNING ON EMPTY STOMACH FOR 90 DAYS No levothyrox ine 75 mcg tablet TAKE 1 TABLET BY MOUTH EVERY DAY IN THE MORNING ON EMPTY STOMACH FOR 90 DAYS [facility] nifedipine ER 30 mg tablet,exte nded release TAKE 1 TABLET BY MOUTH DAILY FOR HYPERTENSIO N nifedipine ER 30 mg tablet,exte nded release TAKE 1 TABLET BY MOUTH DAILY FOR HYPERTENSIO N No nifedipine ER 30 mg tablet,ext ended release TAKE 1 TABLET BY MOUTH DAILY FOR HYPERTENSI ON [facility] azelaic acid 15 % topical gel azelaic acid 15 % topical gel No azelaic acid 15 % topical gel [facility] Anamaria 0.35 mg tablet TAKE 1 TABLET BY MOUTH EVERY DAY DIRECTED Anamaria 0.35 mg tablet TAKE 1 TABLET BY MOUTH EVERY DAY DIRECTED No Anamaria 0.35 mg tablet TAKE 1 TABLET BY MOUTH EVERY DAY DIRECTED [facility] estradiol 2 mg tablet TAKE ONE TABLET BY MOUTH SUBLINGUALL Y TWICE A DAY THEN INCREASE TO THREE TIMES A DAY estradiol 2 mg tablet TAKE ONE TABLET BY MOUTH SUBLINGUALL Y TWICE A DAY THEN INCREASE TO THREE TIMES A DAY No estradiol 2 mg tablet TAKE ONE TABLET BY MOUTH SUBLINGUAL LY TWICE A DAY THEN INCREASE TO THREE TIMES A DAY [facility] levothyroxi ne 75 mcg tablet TAKE 1 TABLET BY MOUTH EVERY DAY IN THE MORNING ON EMPTY STOMACH FOR 90 DAYS levothyroxi ne 75 mcg tablet TAKE 1 TABLET BY MOUTH EVERY DAY IN THE MORNING ON EMPTY STOMACH FOR 90 DAYS No levothyrox ine 75 mcg tablet TAKE 1 TABLET BY MOUTH EVERY DAY IN THE MORNING ON EMPTY STOMACH FOR 90 DAYS [facility] Medrol (Ward) 4 mg tablets in a dose pack Take 1 dose pk by oral route. Medrol (Ward) 4 mg tablets in a dose pack Take 1 dose pk by oral route. No 1dose pk(s) Medrol (Ward) 4 mg tablets in a dose pack Take 1 dose pk by oral route. [facility] nifedipine ER 30 mg tablet,exte nded release TAKE 1 TABLET BY MOUTH DAILY FOR HYPERTENSIO N nifedipine ER 30 mg tablet,exte nded release TAKE 1 TABLET BY MOUTH DAILY FOR HYPERTENSIO N No nifedipine ER 30 mg tablet,ext ended release TAKE 1 TABLET BY MOUTH DAILY FOR HYPERTENSI ON [facility] Proctosol HC 2.5 % topical cream perineal applicator APPLY SPARINGLY TO AFFECTED AREA 2 TO 4 TIMES A DAY Proctosol HC 2.5 % topical cream perineal applicator APPLY SPARINGLY TO AFFECTED AREA 2 TO 4 TIMES A DAY No Proctosol HC 2.5 % topical cream perineal applicator APPLY SPARINGLY TO AFFECTED AREA 2 TO 4 TIMES A DAY [facility] amoxicillin 875 mg tablet amoxicillin 875 mg tablet No amoxicilli n 875 mg tablet [facility] azelaic acid 15 % topical gel azelaic acid 15 % topical gel No azelaic acid 15 % topical gel [facility] Anamaria 0.35 mg tablet TAKE 1 TABLET BY MOUTH EVERY DAY DIRECTED Anamaria 0.35 mg tablet TAKE 1 TABLET BY MOUTH EVERY DAY DIRECTED No Anamaria 0.35 mg tablet TAKE 1 TABLET BY MOUTH EVERY DAY DIRECTED [facility] estradiol 2 mg tablet TAKE ONE TABLET BY MOUTH SUBLINGUALL Y TWICE A DAY THEN INCREASE TO THREE TIMES A DAY estradiol 2 mg tablet TAKE ONE TABLET BY MOUTH SUBLINGUALL Y TWICE A DAY THEN INCREASE TO THREE TIMES A DAY No estradiol 2 mg tablet TAKE ONE TABLET BY MOUTH SUBLINGUAL LY TWICE A DAY THEN INCREASE TO THREE TIMES A DAY [facility] levothyroxi ne 75 mcg tablet TAKE 1 TABLET BY MOUTH EVERY DAY IN THE MORNING ON EMPTY STOMACH FOR 90 DAYS levothyroxi ne 75 mcg tablet TAKE 1 TABLET BY MOUTH EVERY DAY IN THE MORNING ON EMPTY STOMACH FOR 90 DAYS No levothyrox ine 75 mcg tablet TAKE 1 TABLET BY MOUTH EVERY DAY IN THE MORNING ON EMPTY STOMACH FOR 90 DAYS [facility] methylpredn isolone 4 mg tablets in a dose pack TAKE DIRECTED PER PACKAGE DIRECTIONS methylpredn isolone 4 mg tablets in a dose pack TAKE DIRECTED PER PACKAGE DIRECTIONS No methylpred nisolone 4 mg tablets in a dose pack TAKE DIRECTED PER PACKAGE DIRECTIONS [facility] nifedipine ER 30 mg tablet,exte nded release TAKE 1 TABLET BY MOUTH DAILY FOR HYPERTENSIO N nifedipine ER 30 mg tablet,exte nded release TAKE 1 TABLET BY MOUTH DAILY FOR HYPERTENSIO N No nifedipine ER 30 mg tablet,ext ended release TAKE 1 TABLET BY MOUTH DAILY FOR HYPERTENSI ON [facility] Proctosol HC 2.5 % topical cream perineal applicator APPLY SPARINGLY TO AFFECTED AREA 2 TO 4 TIMES A DAY Proctosol HC 2.5 % topical cream perineal applicator APPLY SPARINGLY TO AFFECTED AREA 2 TO 4 TIMES A DAY No Proctosol HC 2.5 % topical cream perineal applicator APPLY SPARINGLY TO AFFECTED AREA 2 TO 4 TIMES A DAY [facility] azelaic acid 15 % topical gel azelaic acid 15 % topical gel No azelaic acid 15 % topical gel [facility] Anamaria 0.35 mg tablet TAKE 1 TABLET BY MOUTH EVERY DAY DIRECTED Anamaria 0.35 mg tablet TAKE 1 TABLET BY MOUTH EVERY DAY DIRECTED No Anamaria 0.35 mg tablet TAKE 1 TABLET BY MOUTH EVERY DAY DIRECTED [facility] estradiol 2 mg tablet TAKE ONE TABLET BY MOUTH SUBLINGUALL Y TWICE A DAY THEN INCREASE TO THREE TIMES A DAY estradiol 2 mg tablet TAKE ONE TABLET BY MOUTH SUBLINGUALL Y TWICE A DAY THEN INCREASE TO THREE TIMES A DAY No estradiol 2 mg tablet TAKE ONE TABLET BY MOUTH SUBLINGUAL LY TWICE A DAY THEN INCREASE TO THREE TIMES A DAY [facility] levothyroxi ne 75 mcg tablet TAKE 1 TABLET BY MOUTH EVERY DAY IN THE MORNING ON EMPTY STOMACH FOR 90 DAYS levothyroxi ne 75 mcg tablet TAKE 1 TABLET BY MOUTH EVERY DAY IN THE MORNING ON EMPTY STOMACH FOR 90 DAYS No levothyrox ine 75 mcg tablet TAKE 1 TABLET BY MOUTH EVERY DAY IN THE MORNING ON EMPTY STOMACH FOR 90 DAYS [facility] nifedipine ER 30 mg tablet,exte nded release TAKE 1 TABLET BY MOUTH DAILY FOR HYPERTENSIO N nifedipine ER 30 mg tablet,exte nded release TAKE 1 TABLET BY MOUTH DAILY FOR HYPERTENSIO N No nifedipine ER 30 mg tablet,ext ended release TAKE 1 TABLET BY MOUTH DAILY FOR HYPERTENSI ON [facility] Proctosol HC 2.5 % topical cream perineal applicator APPLY SPARINGLY TO AFFECTED AREA 2 TO 4 TIMES A DAY Proctosol HC 2.5 % topical cream perineal applicator APPLY SPARINGLY TO AFFECTED AREA 2 TO 4 TIMES A DAY No Proctosol HC 2.5 % topical cream perineal applicator APPLY SPARINGLY TO AFFECTED AREA 2 TO 4 TIMES A DAY [facility] azelaic acid 15 % topical gel azelaic acid 15 % topical gel No azelaic acid 15 % topical gel [facility] Anamaria 0.35 mg tablet TAKE 1 TABLET BY MOUTH EVERY DAY DIRECTED Anamaria 0.35 mg tablet TAKE 1 TABLET BY MOUTH EVERY DAY DIRECTED No Anamaria 0.35 mg tablet TAKE 1 TABLET BY MOUTH EVERY DAY DIRECTED [facility] estradiol 2 mg tablet TAKE ONE TABLET BY MOUTH SUBLINGUALL Y TWICE A DAY THEN INCREASE TO THREE TIMES A DAY estradiol 2 mg tablet TAKE ONE TABLET BY MOUTH SUBLINGUALL Y TWICE A DAY THEN INCREASE TO THREE TIMES A DAY No estradiol 2 mg tablet TAKE ONE TABLET BY MOUTH SUBLINGUAL LY TWICE A DAY THEN INCREASE TO THREE TIMES A DAY [facility] levothyroxi ne 75 mcg tablet TAKE 1 TABLET BY MOUTH EVERY DAY IN THE MORNING ON EMPTY STOMACH FOR 90 DAYS levothyroxi ne 75 mcg tablet TAKE 1 TABLET BY MOUTH EVERY DAY IN THE MORNING ON EMPTY STOMACH FOR 90 DAYS No levothyrox ine 75 mcg tablet TAKE 1 TABLET BY MOUTH EVERY DAY IN THE MORNING ON EMPTY STOMACH FOR 90 DAYS [facility] losartan 50 mg tablet TAKE 1 TABLET BY MOUTH 1 TIME EACH DAY. losartan 50 mg tablet TAKE 1 TABLET BY MOUTH 1 TIME EACH DAY. No losartan 50 mg tablet TAKE 1 TABLET BY MOUTH 1 TIME EACH DAY. [facility] mupirocin 2 % topical ointment APPLY TO AFFECTED AREA 3 TIMES A DAY FOR 7 DAYS mupirocin 2 % topical ointment APPLY TO AFFECTED AREA 3 TIMES A DAY FOR 7 DAYS No mupirocin 2 % topical ointment APPLY TO AFFECTED AREA 3 TIMES A DAY FOR 7 DAYS [facility] nifedipine ER 30 mg tablet,exte nded release TAKE 1 TABLET BY MOUTH DAILY FOR HYPERTENSIO N nifedipine ER 30 mg tablet,exte nded release TAKE 1 TABLET BY MOUTH DAILY FOR HYPERTENSIO N No nifedipine ER 30 mg tablet,ext ended release TAKE 1 TABLET BY MOUTH DAILY FOR HYPERTENSI ON [facility] Proctosol HC 2.5 % topical cream perineal applicator APPLY SPARINGLY TO AFFECTED AREA 2 TO 4 TIMES A DAY Proctosol HC 2.5 % topical cream perineal applicator APPLY SPARINGLY TO AFFECTED AREA 2 TO 4 TIMES A DAY No Proctosol HC 2.5 % topical cream perineal applicator APPLY SPARINGLY TO AFFECTED AREA 2 TO 4 TIMES A DAY [facility] tramadol 50 mg tablet TAKE 1 TABLET BY MOUTH EVERY 6 HOURS NEEDED tramadol 50 mg tablet TAKE 1 TABLET BY MOUTH EVERY 6 HOURS NEEDED No tramadol 50 mg tablet TAKE 1 TABLET BY MOUTH EVERY 6 HOURS NEEDED [facility] Vital Signs Vital Name Observation Time Observation Value Comments S ourolive Systolic blood pressure 2024-08-07 21:37:00 127 mm[Hg] [facility] Diastolic blood pressure 2024-08-07 21:37:00 82 mm[Hg] [facility] Heart rate 2024-08-07 21:37:00 81 /min [facility] Body temperature 2024-08-07 21:37:00 36.78 Liliam [facility] Respiratory rate 2024-08-07 21:37:00 20 /min [facility] Body height 2024-08-07 21:37:00 167.6 cm [facility] Body weight 2024-08-07 21:37:00 84.777 kg [facility] BMI 2024-08-07 21:37:00 30.17 kg/m2 [facility] Oxygen saturation in Arterial blood by Pulse oximetry 2024-08-07 21:37:00 99 /min [facility] height 2024-06-24 10:00:00 66 [facility]in_i[facility] 2024-06-24 10:00:00 [facility] bmi 2024-06-24 10:00:00 29.86 kg/m2 [facility] temperature 2024-06-24 10:00:00 98.2 [degF] [facility] Systolic blood pressure 2024-03-14 15:25:00 119 mm[Hg] [facility] Diastolic blood pressure 2024-03-14 15:25:00 77 mm[Hg] [facility] Heart rate 2024-03-14 15:25:00 98 /min [facility] Body temperature 2024-03-14 15:25:00 37.28 Liliam [facility] Respiratory rate 2024-03-14 15:25:00 17 /min [facility] Body weight 2024-03-14 15:25:00 82.146 kg [facility] BMI 2024-03-14 15:25:00 29.23 kg/m2 [facility] Oxygen saturation in Arterial blood by Pulse oximetry 2024-03-14 15:25:00 99 /min [facility] BP Diastolic 2024-01-01 00:00:00 75 mm[Hg] [facility] Body Weight 2024-01-01 00:00:00 179.6 [lb_av] [facility] BP Systolic 2024-01-01 00:00:00 127 mm[Hg] [facility] Height 2024-01-01 00:00:00 66 [in_i] [facility] BMI (Body Mass Index) 2024-01-01 00:00:00 29 kg/m2 [facility] Height 2023-07-07 00:00:00 64 [in_i] [facility] BP Diastolic 2023-07-07 00:00:00 84 mm[Hg] [facility] BMI (Body Mass Index) 2023-07-07 00:00:00 32.6 kg/m2 [facility] Body Weight 2023-07-07 00:00:00 190 [lb_av] [facility] BP Systolic 2023-07-07 00:00:00 127 mm[Hg] [facility] BP Diastolic 2023-06-02 00:00:00 84 mm[Hg] [facility] Height 2023-06-02 00:00:00 64 [in_i] [facility] BMI (Body Mass Index) 2023-06-02 00:00:00 32.5 kg/m2 [facility] BP Systolic 2023-06-02 00:00:00 127 mm[Hg] [facility] Body Weight 2023-06-02 00:00:00 189.3 [lb_av] [facility] BMI (Body Mass Index) 2023-02-17 00:00:00 31.8 kg/m2 [facility] BP Systolic 2023-02-17 00:00:00 127 mm[Hg] [facility] Body Weight 2023-02-17 00:00:00 185 [lb_av] [facility] BP Diastolic 2023-02-17 00:00:00 80 mm[Hg] [facility] Height 2023-02-17 00:00:00 64 [in_i] [facility] BP Diastolic 2023-01-29 00:00:00 84 mm[Hg] [facility] Height 2023-01-29 00:00:00 64 [in_i] [facility] BMI (Body Mass Index) 2023-01-29 00:00:00 31.8 kg/m2 [facility] BP Systolic 2023-01-29 00:00:00 127 mm[Hg] [facility] Body Weight 2023-01-29 00:00:00 185 [lb_av] [facility] BP Diastolic 2023-01-06 00:00:00 88 mm[Hg] [facility] Height 2023-01-06 00:00:00 64 [in_i] [facility] BMI (Body Mass Index) 2023-01-06 00:00:00 31 kg/m2 [facility] BP Systolic 2023-01-06 00:00:00 134 mm[Hg] [facility] Body Weight 2023-01-06 00:00:00 180.7 [lb_av] [facility] BP Diastolic 2022-12-16 00:00:00 87 mm[Hg] [facility] Height 2022-12-16 00:00:00 64 [in_i] [facility] BMI (Body Mass Index) 2022-12-16 00:00:00 31.4 kg/m2 [facility] BP Systolic 2022-12-16 00:00:00 131 mm[Hg] [facility] Body Weight 2022-12-16 00:00:00 183 [lb_av] [facility] BP Diastolic 2022-11-18 00:00:00 91 mm[Hg] [facility] Height 2022-11-18 00:00:00 64 [in_i] [facility] BMI (Body Mass Index) 2022-11-18 00:00:00 36 kg/m2 [facility] BP Systolic 2022-11-18 00:00:00 129 mm[Hg] [facility] Body Weight 2022-11-18 00:00:00 210 [lb_av] [facility] BP Diastolic 2022 00:00:00 84 mm[Hg] [facility] Height 2022 00:00:00 64 [in_i] [facility] BMI (Body Mass Index) 2022 00:00:00 36.8 kg/m2 [facility] BP Systolic 2022 00:00:00 140 mm[Hg] [facility] Body Weight 2022 00:00:00 214.2 [lb_av] [facility] BP Diastolic 2022-11-07 00:00:00 86 mm[Hg] [facility] Height 2022-11-07 00:00:00 64 [in_i] [facility] BMI (Body Mass Index) 2022-11-07 00:00:00 36.8 kg/m2 [facility] BP Systolic 2022-11-07 00:00:00 139 mm[Hg] [facility] Body Weight 2022-11-07 00:00:00 214.4 [lb_av] [facility] BP Diastolic 2022-10-21 00:00:00 77 mm[Hg] [facility] Height 2022-10-21 00:00:00 64 [in_i] [facility] BMI (Body Mass Index) 2022-10-21 00:00:00 36.2 kg/m2 [facility] BP Systolic 2022-10-21 00:00:00 131 mm[Hg] [facility] Body Weight 2022-10-21 00:00:00 211 [lb_av] [facility] BP Diastolic 2022-10-06 00:00:00 83 mm[Hg] [facility] Height 2022-10-06 00:00:00 64 [in_i] [facility] BMI (Body Mass Index) 2022-10-06 00:00:00 37.3 kg/m2 [facility] BP Systolic 2022-10-06 00:00:00 138 mm[Hg] [facility] Body Weight 2022-10-06 00:00:00 217.1 [lb_av] [facility] BP Diastolic 2022-09-08 00:00:00 78 mm[Hg] [facility] Height 2022-09-08 00:00:00 64 [in_i] [facility] BMI (Body Mass Index) 2022-09-08 00:00:00 36.4 kg/m2 [facility] BP Systolic 2022-09-08 00:00:00 117 mm[Hg] [facility] Body Weight 2022-09-08 00:00:00 212 [lb_av] [facility] BP Diastolic 2022-08-11 00:00:00 72 mm[Hg] [facility] Height 2022-08-11 00:00:00 64 [in_i] [facility] BMI (Body Mass Index) 2022-08-11 00:00:00 36.7 kg/m2 [facility] BP Systolic 2022-08-11 00:00:00 111 mm[Hg] [facility] Body Weight 2022-08-11 00:00:00 214 [lb_av] [facility] BP Diastolic 2022-07-18 00:00:00 78 mm[Hg] [facility] Height 2022-07-18 00:00:00 64 [in_i] [facility] BMI (Body Mass Index) 2022-07-18 00:00:00 35.7 kg/m2 [facility] BP Systolic 2022-07-18 00:00:00 123 mm[Hg] [facility] Body Weight 2022-07-18 00:00:00 208.2 [lb_av] [facility] BP Diastolic 2022-06-11 00:00:00 67 mm[Hg] [facility] BP Systolic 2022-06-11 00:00:00 128 mm[Hg] [facility] Body Weight 2022-06-11 00:00:00 202.9 [lb_av] [facility] BP Diastolic 2022-05-05 00:00:00 78 mm[Hg] [facility] BP Systolic 2022-05-05 00:00:00 116 mm[Hg] [facility] Body Weight 2022-05-05 00:00:00 204.1 [lb_av] [facility] Systolic blood pressure 2021-10-26 16:21:00 128 mm[Hg] [facility] Diastolic blood pressure 2021-10-26 16:21:00 75 mm[Hg] [facility] Heart rate 2021-10-26 16:21:00 57 /min [facility] Body temperature 2021-10-26 16:21:00 36.22 Liliam [facility] Respiratory rate 2021-10-26 16:21:00 18 /min [facility] Oxygen saturation in Arterial blood by Pulse oximetry 2021-10-26 16:21:00 98 /min [facility] Body height 2021-10-26 15:48:00 167.6 cm [facility] Body weight 2021-10-26 15:48:00 96.163 kg [facility] BMI 2021-10-26 15:48:00 34.22 kg/m2 [facility] Systolic blood pressure 2020-02-11 06:22:00 124 mm[Hg] [facility] Diastolic blood pressure 2020-02-11 06:22:00 78 mm[Hg] [facility] Heart rate 2020-02-11 06:22:00 78 /min [facility] Body temperature 2020-02-11 06:22:00 36.78 Liliam [facility] Respiratory rate 2020-02-11 06:22:00 18 /min [facility] Oxygen saturation in Arterial blood by Pulse oximetry 2020-02-11 06:22:00 100 /min [facility] Body height 2020-02-11 03:42:00 167.6 cm [facility] Body weight 2020-02-11 03:42:00 117.935 kg [facility] BMI 2020-02-11 03:42:00 41.97 kg/m2 [facility] Systolic blood pressure 2020-02-11 06:22:00 124 mm[Hg] [facility] Diastolic blood pressure 2020-02-11 06:22:00 78 mm[Hg] [facility] Heart rate 2020-02-11 06:22:00 78 [facility] 2020-02-11 06:22:00 36.78 Liliam [facility] Respiratory rate 2020-02-11 06:22:00 18 /min [facility] Oxygen saturation in Arterial blood by Pulse oximetry 2020-02-11 06:22:00 100 /min [facility] Body height 2020-02-11 03:42:00 167.6 cm [facility] Body weight 2020-02-11 03:42:00 117.935 kg [facility] BMI 2020-02-11 03:42:00 41.97 kg/m2 [facility] Height 2021-03-11 15:28:00 167.64 cm [facility] Weight 2021-03-11 15:28:00 [facility] BMI Calculated 2021-03-11 15:28:00 [facility] Temperature Oral (F) 2020-11-18 13:12:00 97.5 F [facility] Heart Rate 2020-11-18 13:12:00 [facility] Respitory Rate 2020-11-18 13:12:00 [facility] Systolic (mm Hg) 2020-11-18 13:12:00 [facility] Diastolic (mm Hg) 2020-11-18 13:12:00 [facility] Temperature Oral (F) 2020-11-18 10:39:00 98.2 F [facility] Heart Rate 2020-11-18 10:39:00 [facility] Respitory Rate 2020-11-18 10:39:00 [facility] Systolic (mm Hg) 2020-11-18 10:39:00 [facility] Diastolic (mm Hg) 2020-11-18 10:39:00 [facility] Temperature Oral (F) 2020-11-18 05:18:00 98.7 F [facility] Heart Rate 2020-11-18 05:18:00 [facility] Respitory Rate 2020-11-18 05:18:00 [facility] Systolic (mm Hg) 2020-11-18 05:18:00 [facility] Diastolic (mm Hg) 2020-11-18 05:18:00 [facility] Height 2020-11-18 01:46:00 167.64 cm [facility] Weight 2020-11-18 01:46:00 [facility] BMI Calculated 2020-11-18 01:46:00 [facility] Systolic (mm Hg) 2020-11-17 21:13:00 [facility] Diastolic (mm Hg) 2020-11-17 21:13:00 [facility] Heart Rate 2020-11-17 21:13:00 [facility] Respitory Rate 2020-11-17 21:13:00 [facility] Temperature Oral (F) 2020-11-17 21:13:00 98.1 F [facility] Height 2020-11-15 20:02:00 167.64 cm [facility] Weight 2020-11-15 20:02:00 [facility] BMI Calculated 2020-11-15 20:02:00 [facility] Temperature Oral (F) 2020-11-10 13:58:00 97.4 F [facility] Heart Rate 2020-11-10 13:58:00 [facility] Respitory Rate 2020-11-10 13:58:00 [facility] Systolic (mm Hg) 2020-11-10 13:58:00 [facility] Diastolic (mm Hg) 2020-11-10 13:58:00 [facility] Temperature Oral (F) 2020-11-10 10:00:00 98.8 F [facility] Heart Rate 2020-11-10 10:00:00 [facility] Respitory Rate 2020-11-10 10:00:00 [facility] Systolic (mm Hg) 2020-11-10 10:00:00 [facility] Diastolic (mm Hg) 2020-11-10 10:00:00 [facility] Temperature Oral (F) 2020-11-10 06:00:00 99.1 F [facility] Heart Rate 2020-11-10 06:00:00 [facility] Respitory Rate 2020-11-10 06:00:00 [facility] Systolic (mm Hg) 2020-11-10 06:00:00 [facility] Diastolic (mm Hg) 2020-11-10 06:00:00 [facility] Height 2020-11-05 17:18:00 167.64 cm [facility] Weight 2020-11-05 17:18:00 [facility] BMI Calculated 2020-11-05 17:18:00 [facility] Height 2020-10-08 15:05:00 167.64 cm [facility] Weight 2020-10-08 15:05:00 [facility] BMI Calculated 2020-10-08 15:05:00 [facility] Height 2020-08-17 13:49:00 167.64 cm [facility] Weight 2020-08-17 13:49:00 [facility] BMI Calculated 2020-08-17 13:49:00 [facility] Systolic (mm Hg) 2020-02-27 16:07:00 [facility] Diastolic (mm Hg) 2020-02-27 16:07:00 [facility] Heart Rate 2020-02-27 16:07:00 [facility] Height 2020-02-27 16:07:00 167.64 cm [facility] Weight 2020-02-27 16:07:00 [facility] BMI Calculated 2020-02-27 16:07:00 [facility] Procedures Procedure Date / Time Performed Performing Clinician Source POCT MOLECULAR STREP 2024-08-07 21:53:00 Unknown, Attnae lucas [facility] POCT MOLECULAR FLU 2024-03-14 15:48:00 Unknown, Attend [facility] POCT MOLECULAR STREP 2024-03-14 15:45:00 Unknown, Allison lucas [facility] POCT SARS-COV-2 ANTIGEN (BINAX NOW) 2024-03-14 00:00:00 Maile Perdomo [facility] Release Wrist/forearm Tendon 2023-06-23 00:00:00 [facility] Procedure on Hand 2023-06-09 00:00:00 [facility] XR, wrist, 3 or more view 2023-01-28 00:00:00 [facility] XR, wrist, 3 or more view 2023-01-26 00:00:00 [facility] Delivery 2022-11-09 00:00:00 [facility] US, obstetric, limited 2022-11-07 00:00:00 [facility] US, obstetric, limited 2022-10-06 00:00:00 [facility] US, gallbladder 2022-09-22 00:00:00 [facility] US, obstetric, limited 2022-08-11 00:00:00 [facility] US, obstetric, limited 2022-07-18 00:00:00 [facility] US, obstetric, limited 2022-06-11 00:00:00 [facility] ULTRASOUND, UTERUS REAL TIME WITH IMAGE DOC, AND MATERNAL EVAL PLUS DETAILED ANATOMIC EXAMINATION, TRANSABDOMINAL APPROACH; SINGLE OR FIRST GESTATION 2022-06-11 00:00:00 [facility] US, obstetric, limited 2022-05-05 00:00:00 [facility] [id number] CONSENT 2021-10-26 06:01:00 Doctor Unas signed, [place] [facility] Laparoscopic Sleeve Gastrectomy 2020-10-09 00:00:00 [facility] AUTHORIZATION FOR RELEASE OF PHI 2020-07-09 05:01:00 Doctor Unassigned, [place] [facility] POCT TEST 2020-02-11 04:04:00 Gina Guillen [facility] URINALYSIS 2020-02-11 04:03:00 Gina Guillen [facility] NOTICE OF PRIVACY PRACTICES 2020-02-11 03:34:51 Doctor Unassigned, [place] [facility] CONSENT/REFUSAL FOR DIAGNOSIS AND TREATMENT 2020-02-11 03:34:37 Doctor Unassigned, [place] [facility] Hysteroscopy 2019-05-09 00:00:00 Patricia Simms edical Cystoscopy [facility] Dilation and curettage Hermilo Gomez Colonoscopy Denia stevens EGD (esophagogastroduodenosco py) gastric outlet reduction Denia Gomez Plan of Care Planned Activity Planned Date Details Comments Source Diagnostic Test Pending 2023-01-06 00:00:00 test, urine [code = test, urine] [facility] Encounters Start Date/Time End Date/Time Encounter Type Admission Type Attending Clinicians Care Facility Care Department Encounter ID Source 2024-06-24 10:35:01 Outpatient Gloria Albarado [facility] [id number] [facility] 2020-08-14 13:12:47 Outpatient EJ BLACKWOOD [facility]EL [id number] [facility] 2024-08-07 17:00:00 2024-08-07 18:33:33 Outpatient R KANDI CAAL [facility] [id number] General acute hospital 2024-08-07 17:00:00 2024-08-07 17:20:00 Urgent Care Kandi Caal Unknown, Attending [facility] MEDICAL OFFICE BUILDING 1.2.840.114 350.1.13.10 4.2.7.2.686 [id number] General acute hospital 2024-08-07 00:00:00 2024-08-07 16:40:25 Nurse Triage Jessie Roberts Jenny L [facility] 1.2.840.114 350.1.13.10 4.2.7.2.686 [id number] General acute hospital 2024-06-24 00:00:00 2024-06-24 00:00:00 Office Visit- Est Pt.- Level 4 CLS CLS [id number] [facility] 2024-04-05 00:00:00 2024-04-05 09:06:50 RefMaile Villalobos [facility] MEDICAL OFFICE BUILDING 1.2.840.114 350.1.13.10 4.2.7.2.686 [id number] General acute hospital 2024-04-05 00:00:00 2024-04-05 08:12:54 Refgareth Perdomo Maile [facility] MEDICAL OFFICE BUILDING 1.2.840.114 350.1.13.10 4.2.7.2.686 [id number] General acute hospital 2024-03-14 10:00:00 2024-03-14 10:54:35 Outpatient R MAILE PERDOMO [facility] [id number] General acute hospital 2024-03-14 10:00:00 2024-03-14 10:54:35 Urgent Care Maile Perdomo, Attending [facility] MEDICAL OFFICE [facility] 1.2.840.114 350.1.13.10 4.2.7.2.686 [id number] General acute hospital 2024-02-04 00:00:00 2024-02-04 00:00:00 Outpatient GC_GCBZW_Ka diyala_S PRIV PRIV [id number] [facility] 2024-01-08 00:00:00 2024-01-08 00:00:00 Outpatient GC_GCBZW_Ka diyala_S PRIV PRIV [id number] [facility] 2024-01-01 00:00:00 2024-01-01 00:00:00 Outpatient GC_GCBZW_Ka diyala_S PRIV PRIV [id number] [facility] 2024-01-01 00:00:00 2024-01-01 00:00:00 Abbey Carrasco, [employer]: [address], [place] [address], [place] [address] , Ph. [facility] - GC_GCBZW_[place] [facility]* [id number] [facility] 2023-12-24 00:00:00 2023-12-24 00:00:00 Outpatient GC_GCBZW_Ka diyala_S PRIV PRIV [id number] [facility] 2023-12-10 00:00:00 2023-12-10 00:00:00 Outpatient GC_GCBZW_Ka diyala_S PRIV PRIV [id number] [facility] 2023-11-12 00:00:00 2023-11-12 00:00:00 Outpatient GC_GCBZW_Ka diyala_S PRIV PRIV [id number] [facility] 2023-10-15 00:00:00 2023-10-15 00:00:00 Outpatient GC_GCBZW_Ka diyala_S PRIV PRIV [id number] [facility] 2023-10-06 00:00:00 2023-10-06 00:00:00 Outpatient GC_GCBZW_Ka diyala_S PRIV PRIV [id number] [facility] 2023-10-06 00:00:00 2023-10-06 00:00:00 Outpatient GC_GCBZW_Ka diyala_S PRIV PRIV [id number] [facility] 2023-09-04 00:00:00 2023-09-04 00:00:00 Outpatient GC_GCBZW_Ka diyala_S PRIV PRIV [id number] [facility] 2023-09-04 00:00:00 2023-09-04 00:00:00 Outpatient GC_GCBZW_Ka diyala_S PRIV PRIV [id number] [facility] 2023-09-04 00:00:00 2023-09-04 00:00:00 Outpatient GC_GCBZW_Ka diyala_S PRIV PRIV [id number] [facility] 2023-09-04 00:00:00 2023-09-04 00:00:00 Outpatient GC_GCBZW_Ka diyala_S PRIV PRIV [id number] [facility] 2023-09-04 00:00:00 2023-09-04 00:00:00 Outpatient GC_GCBZW_Ka diyala_S PRIV PRIV [id number] [facility] 2023-09-04 00:00:00 2023-09-04 00:00:00 Outpatient GC_GCBZW_Ka diyala_S PRIV PRIV [id number] [facility] 2023-09-04 00:00:00 2023-09-04 00:00:00 Outpatient GC_GCBZW_Ka diyala_S PRIV PRIV [id number] [facility] 2023-08-28 00:00:00 2023-08-28 00:00:00 Outpatient GC_GCBZW_Ka diyala_S PRIV PRIV [id number] [facility] 2023-08-28 00:00:00 2023-08-28 00:00:00 Outpatient GC_GCBZW_Ka diyala_S PRIV PRIV [id number] [facility] 2023-08-28 00:00:00 2023-08-28 00:00:00 Outpatient GC_GCBZW_Ka diyala_S PRIV PRIV [id number] [facility] 2023-07-29 00:00:00 2023-07-29 00:00:00 Outpatient GC_GCBZW_Ka diyala_S PRIV PRIV [id number] [facility] 2023-07-29 00:00:00 2023-07-29 00:00:00 Outpatient GC_GCBZW_Ka diyala_S PRIV PRIV [id number] [facility] 2023-07-28 00:00:00 2023-07-28 00:00:00 Outpatient GC_GCBZW_Ka diyala_S PRIV PRIV [id number] [facility] 2023-07-07 00:00:00 2023-07-07 00:00:00 Benjamin Gee MD: [address] [place] [address], [address], [place] [address] , Ph. [facility] [id number] [facility] 2023-07-06 00:00:00 2023-07-06 00:00:00 Outpatient cMcDonald MMG MMG [id number] [facility] 2023-07-06 00:00:00 2023-07-06 00:00:00 Outpatient cMcDonald MMG MMG [id number] [facility] 2023-07-06 00:00:00 2023-07-06 00:00:00 Outpatient cMcDonald MMG MMG [id number] [facility] 2023-06-23 08:58:00 2023-06-23 08:58:00 Outpatient BENJAMIN GALINDO [facility] [id number] [facility] 2023-06-02 00:00:00 2023-06-02 00:00:00 Benjamin Gee MD: [address], [address], [place] [address] , Ph. [facility] [id number] [facility] 2023-02-17 00:00:00 2023-02-17 00:00:00 Benjamin Gee MD: [address], [address], [place] [address] , Ph. [facility] [id number] [facility] 2023-02-16 00:00:00 2023-02-16 00:00:00 Outpatient cMcDonald MMG MMG [id number] [facility] 2023-02-16 00:00:00 2023-02-16 00:00:00 Outpatient cMcDonald MMG MMG [id number] [facility] 2023-02-16 00:00:00 2023-02-16 00:00:00 Outpatient cMcDonald MMG MMG [id number] [facility] 2023-02-16 00:00:00 2023-02-16 00:00:00 Outpatient cMcDonald MMG MMG [id number] [facility] 2023-02-16 00:00:00 2023-02-16 00:00:00 Outpatient cMcDonald MMG MMG [id number] [facility] 2023-02-16 00:00:00 2023-02-16 00:00:00 Outpatient cMcDonald MMG MMG [id number] [facility] 2023-02-16 00:00:00 2023-02-16 00:00:00 Outpatient cMcDonald MMG MMG [id number] [facility] 2023-02-16 00:00:00 2023-02-16 00:00:00 Outpatient cMcDonald MMG MMG [id number] [facility] 2023-02-16 00:00:00 2023-02-16 00:00:00 Outpatient cMcDonald MMG MMG [id number] [facility] 2023-02-16 00:00:00 2023-02-16 00:00:00 Outpatient cMcDonald MMG MMG [id number] [facility] 2023-02-16 00:00:00 2023-02-16 00:00:00 Outpatient cMcDonald MMG MMG [id number] [facility] 2023-02-16 00:00:00 2023-02-16 00:00:00 Outpatient cMcDonald MMG MMG [id number] [facility] 2023-02-16 00:00:00 2023-02-16 00:00:00 Outpatient cMcDonald MMG MMG [id number] [facility] 2023-02-16 00:00:00 2023-02-16 00:00:00 Outpatient cMcDonald MMG MMG [id number] [facility] 2023-01-29 14:43:00 2023-01-29 14:43:00 Outpatient BENJAMIN GALINDO [facility] [id number] [facility] 2023-01-29 00:00:00 2023-01-29 00:00:00 Outpatient cMcDonald MMG MMG [id number] [facility] 2023-01-29 00:00:00 2023-01-29 00:00:00 Outpatient cMcDonald MMG MMG [id number] [facility] 2023-01-29 00:00:00 2023-01-29 00:00:00 Benjamin Gee MD: [address] [place] [address], [address], [place] [address] , Ph. [facility] [id number] [facility] 2023-01-26 00:00:00 2023-01-26 00:00:00 Outpatient cMcDonald MMG MMG [id number] [facility] 2023-01-06 00:00:00 2023-01-06 00:00:00 Kathie Blakely MD: [address], [address], [place] [address] , Ph. [phone] MM[facility] [id number] [facility] 2022-12-19 00:00:00 2022-12-19 00:00:00 Outpatient Rutledge_L MMG MMG [id number] [facility] 2022-12-16 00:00:00 2022-12-16 00:00:00 Outpatient Rutledge_L MMG MMG [id number] [facility] 2022-12-16 00:00:00 2022-12-16 00:00:00 Kathie Blakely MD: [address], [address], [place] [address] , Ph. [phone] MM[facility] [id number] [facility] 2022-11-25 18:24:00 2022-11-28 14:28:00 Inpatient Kathie Antonio [facility] [id number] [facility] 2022-11-28 00:00:00 2022-11-28 00:00:00 Outpatient Rutledge_L MMG MMG [id number] [facility] 2022-11-18 00:00:00 2022-11-18 00:00:00 Outpatient Rutledge_L MMG MMG [id number] [facility] 2022-11-18 00:00:00 2022-11-18 00:00:00 Kathie Blakely MD: [address], [place] [address] , Ph. [phone] MM[facility] [id number] [facility] 2022-11-14 14:42:00 2022-11-14 17:02:00 Emergency ER Spike Samaniego [facility] [id number] [facility] 2022-11-14 14:42:00 2022-11-14 17:02:00 emergency [id number] 2022 00:00:00 2022 00:00:00 Outpatient Rutledge_L MMG MMG [id number] [facility] 2022 00:00:00 2022 00:00:00 Kathie Blakely MD: [address] [address] , Ph. [phone] MMG [facility] - [facility]BGYN [id number] [facility] 2022-11-07 00:00:00 2022-11-07 00:00:00 Outpatient Rutledge_L MMG MMG [id number] [facility] 2022-11-07 00:00:00 2022-11-07 00:00:00 Kathie Blakely MD: [address] [address] , Ph. [phone] MM[facility] - OBGYN [id number] [facility] 2022-10-21 00:00:00 2022-10-21 00:00:00 Outpatient Rutledge_L MMG MMG [id number] [facility] 2022-10-21 00:00:00 2022-10-21 00:00:00 Kathie Blakely MD: [address] [address] , Ph. [phone] [facility] [id number] [facility] 2022-10-06 00:00:00 2022-10-06 00:00:00 Outpatient Rutledge_L MMG MMG [id number] [facility] 2022-10-06 00:00:00 2022-10-06 00:00:00 Kathie Blakely MD: [address], [place] [address] , Ph. [phone] [facility] [id number] [facility] 2022-09-29 17:58:00 2022-09-29 20:43:00 Emergency ER LANDEN HU [facility] [id number] [facility] 2022-09-29 17:58:00 2022-09-29 20:43:00 emergency [id number] 2022-09-23 09:08:00 2022-09-23 09:08:00 Outpatient KATHIE ANTONIO [facility] [id number] [facility] 2022-09-08 08:11:00 2022-09-08 08:11:00 Outpatient KATHIE ANTONIO [facility] [id number] [facility] 2022-09-08 00:00:00 2022-09-08 00:00:00 Outpatient [facility]on[facility] [id number] [facility] 2022-09-08 00:00:00 2022-09-08 00:00:00 Kathie Blakely MD: [address], [place] [address] , Ph. [phone] [facility] [id number] [facility] 2022-08-24 11:17:00 2022-08-24 12:44:00 Emergency SPIKE HAWTHORNE [facility] [id number] [facility] 2022-08-24 11:17:00 2022-08-24 12:44:00 emergency [id number] 2022-08-11 00:00:00 2022-08-11 00:00:00 Outpatient Rutledge_L MMG MMG [id number] [facility] 2022-08-11 00:00:00 2022-08-11 00:00:00 Kathie Blakely MD: [address] [place] [address] , Ph. [phone] MMG [facility] - OBGYN [id number] [facility] 2022-07-18 00:00:00 2022-07-18 00:00:00 Outpatient Rutledge_L MMG MMG [id number] [facility] 2022-07-18 00:00:00 2022-07-18 00:00:00 Kathie Blakely MD: [address] [facility], [place] [address] , Ph. [phone] [facility] [id number] [facility] 2022-06-11 00:00:00 2022-06-11 00:00:00 Kathie Blakely MD: [address] [facility], [place] [address] , Ph. [phone] Rutledge_L MM[facility] [id number] [facility] 2022-06-10 00:00:00 2022-06-10 00:00:00 Outpatient Rutledge_L MMG MMG [id number] [facility] 2022-06-09 00:00:00 2022-06-09 00:00:00 Outpatient PPIO CANDELARIA [facility] [id number] [facility] 2022-05-21 00:00:00 2022-05-21 00:00:00 Outpatient Rutledge_L MMG MMG [id number] [facility] 2022-05-05 00:00:00 2022-05-05 00:00:00 Kathie Blakely MD: [address], [place] [address] , Ph. [phone] Rutledge_L MM[facility] [id number] [facility] 2022-04-09 02:35:00 2022-04-09 02:35:00 Outpatient Rutledge_L MMG MMG [id number] [facility] 2021-10-26 09:00:00 2021-10-26 10:00:00 Nurse Visit Therapy, Adc Covid Bobby Montes De [facility] 1.840.114 350.1.13.10 4.2.7.2.686 [id number] General acute hospital 2021-10-26 09:00:00 2021-10-26 09:00:00 Outpatient BOBBY SANDERS [facility] [id number] General acute hospital 2021-10-26 00:00:00 2021-10-26 00:00:00 Orders Only Doctor Unassigned, [place] [facility] 1.840.114 350.1.13.10 4.2.7.2.686 [id number] General acute hospital 2021-07-08 00:00:00 2021-07-08 00:00:00 Letter (Out) Dalia Vargas [facility] 1.840.114 350.1.13.10 4.2.7.2.686 [id number] General acute hospital 2021-07-06 15:11:53 2021-07-06 15:26:53 Laboratory Only Only, Ang Db Test Ebrahim, Rania [facility] 1.2.840.114 350.1.13.10 4.2.7.2.686 [id number] General acute hospital 2021-07-06 15:15:00 2021-07-06 15:15:00 Outpatient KANDI LEWIS [facility] [id number] General acute hospital 2021-03-11 16:00:00 2021-03-12 04:59:59 Outpatient [facility] [id number] Lorraine Gomez 2021-02-25 16:00:00 2021-02-26 04:59:59 Outpatient [facility] [id number] Lorraine Gomez 2021-02-07 14:30:00 2021-02-08 04:59:59 Outpatient [facility] [id number] Lorraine Gomez 2020-11-22 13:20:00 2020-11-22 13:20:00 Outpatient [facility]IE [facility] [id number] Lorraine Gomez 2020-11-18 01:35:00 2020-11-18 18:20:00 Observatio n nullFlavo r [facility] [id number] Lorraine Gomez 2020-11-17 19:35:00 2020-11-18 12:20:00 Outpatient EJ PARRA [facility] 1009 Lorraine Peters [facility] 2020-11-17 21:01:27 2020-11-18 00:25:00 Emergency nullFlavo r [facility] [id number] Lorraine Gomez 2020-11-17 15:01:00 2020-11-17 18:25:00 Emergency E ISABELA [facility] [id number] Lorraine Peters l [facility] 2020-11-15 20:30:00 2020-11-16 05:59:59 Outpatient [facility]Flavo [facility] [id number] Lorraine Gomez 2020-11-08 14:02:00 2020-11-10 21:32:00 Inpatient nullFlavo r [facility] [id number] Sanazmarcia avery Gomez 2020-11-08 08:02:00 2020-11-10 15:32:00 Inpatient EJ BLACKWOOD [facility] [id number] Lorraine varela [facility] 2020-10-26 15:30:00 2020-10-27 05:59:59 Outpatient nullFlavo r [facility] [id number] Memoria l Jason 2020-10-08 15:10:00 2020-10-09 05:59:59 Outpatient [facility]avo [facility] [id number] Memoria l Jason 2020-09-13 22:00:00 2020-09-14 05:59:59 Outpatient [facility]Flavo [facility] [id number] Sanazoria l Jason 2020-08-17 12:53:00 2020-08-17 15:25:00 Bedded Outpatient nullFlavo r [facility] [id number] Sanazoria l Jason 2020-08-17 09:15:00 2020-08-17 09:15:00 Outpatient [facility] [id number] Sanazmarcia avery Gomez 2020-07-09 00:00:00 2020-07-09 00:00:00 Orders Only Doctor Unassigned, [place] [facility] 1.2.840.114 350.1.13.10 4.2.7.2.686 [id number] 2020-07-09 00:00:00 2020-07-09 00:00:00 Orders Only Doctor Unassigned, [place] [facility] 1.2.840.114 350.1.13.10 4.2.7.2.686 [id number] General acute hospital 2020-02-27 16:00:00 2020-02-28 04:59:59 Outpatient nullFlavo r [facility] [id number] Sanazoria avery Gomez 2020-02-10 22:43:47 2020-02-11 02:12:00 Emergency Gina Guillen [facility] 1.2.840.114 350.1.13.10 4.2.7.2.686 [id number] 2020-02-10 22:43:47 2020-02-11 02:12:00 Emergency Gina Guillen [facility] 1.2.840.114 350.1.13.10 4.2.7.2.686 [id number] General acute hospital 2020-02-10 22:43:47 2020-02-11 02:12:00 Emergency X GINA GUILLEN [facility] [id number] General acute hospital 2020-02-10 00:00:00 2020-02-10 00:00:00 Orders Only Doctor Unassigned, [place] [facility] 1.2.840.114 350.1.13.10 4.2.7.2.686 [id number] 2020-02-10 00:00:00 2020-02-10 00:00:00 Orders Only Doctor Unassigned, [place] [facility] 1.2.840.114 350.1.13.10 4.2.7.2.686 [id number] General acute hospital 2017-04-14 08:30:00 2017-04-14 08:30:00 Outpatient MHIE MHIE [id number] Lorraine Gomez Results Test Description Test Time Test Comments Results Result Co mments Source [facility] SARS-COV-2 ANTIGEN (BINAX NOW)2024-03-14 16:28:00* Test Item Value Reference Range Interpretation Comme nts POCT SARS-COV-2 ANTIGEN (kyree t code = 19328-8) Not Detected Not Detected On board controls acceptable with C Line (test code = 3574) Yes [facility] Molecular [id number] 16:00:49* Test Item Value Reference Range Interpretation Comme nts POCT Molecular FluA (test co de = 00044-6) Negative Negative POCT Molecular FluB (test co de = 39825-3) Negative Negative Lab Interpretation (test cod e = 45255-2) Normal [facility] MOLECULAR [id number] 15:53:22* Test Item Value Reference Range Interpretation Comme nts POCT Molecular Strep (test c ode = 69376-5) Negative Negative Lab Interpretation (test cod e = 46351-9) [facility] [id number] 09:36:00* Test Item Value Reference Range Interpretation Comme nts HCG qualitative,urine (test code = HCG qualitative,urine) negative neg [facility] metabolic [id number] 10:24:00* Test Item Value Reference Range Interpretation Comme nts glucose (test code = glucose) 83 mg/dL 74-106 blood urea nitrogen (test co de = blood urea nitrogen) 9 mg/dL 6-20 osmolality calculated,serum (test code = osmolality calculated,serum) 281 mOsm/kg 280-300 creatinine (test code = creatinine) 0.78 mg/dL 0.50-0.90 glomerular filtration rate ( test code = glomerular filtration rate) > 60.00 BUN/creatinine ratio (test c ode = BUN/creatinine ratio) 11.5 12.0-20.0 L sodium level (test code = so dium level) 142 mmol/L 135-145 potassium level (test code = potassium level) 4.1 mmol/L 3.5-5.2 chloride level (test code = chloride level) 105 mmol/L 98-108 CO2 (test code = CO2) 29 mmol/L 21-32 anion gap (test code = anion gap) 12.1 mEq/L 12.0-20.0 calcium level (test code = calcium level) 9.5 mg/dL 8.6-10.0 [facility] W Auto Differential panel - [id number] 09:58:00 * Test Item Value Reference Range Interpretation Comme nts white blood count (test code = white blood count) 2.5 K/uL 4.0-11.5 L red blood count (test code = red blood count) 4.34 M/uL 3.80-5.20 hemoglobin (test code = hemoglobin) 11.7 g/dL 10.5-15.7 hematocrit (test code = hematocrit) 36.0 % 34.0-50.0 mean corpuscular volume (kyree t code = mean corpuscular volume) 82.9 fL 86.0-100.0 L mean corpuscular hemoglobin (test code = mean corpuscular hemoglobin) 27.0 pg 26.2-33.4 mean corpuscular HGB conc (t est code = mean corpuscular HGB conc) 32.5 g/dL 30.0-34.0 red cell distribution width (test code = red cell distribution width) 12.5 % 12.0-15.5 platelet count (test code = platelet count) 183 K/uL 165-450 mean platelet volume (test c ode = mean platelet volume) 9.8 fL 9.4-12.6 neutrophils % (test code = neutrophils %) 41.5 % 44.4-80.1 L Ig% (test code = Ig%) 0.0 % 0.0-0.4 lymphocyte% (test code = lymphocyte%) 46.2 % 10.0-50.0 mono % (test code = mono %) 11.1 % 3.6-12.0 eos % (test code = eos %) 0.4 % 0.0-5.4 basophil % (test code = baso ning %) 0.8 % 0.1-1.2 absolute neutrophil count (t est code = absolute neutrophil count) 1.05 K/uL 1.56-6.13 L Ig# (test code = Ig#) 0.00 K/uL 0.00-0.03 lymph # (test code = lymph #) 1.17 K/uL 1.18-3.74 L mono # (test code = mono #) 0.28 K/uL 0.24-0.86 eos # (test code = eos #) 0.01 K/uL 0.04-0.36 L basophil # (test code = baso ning #) 0.02 K/uL 0.01-0.08 NRBC% (test code = NRBC%) 0 /100 WBC 0-0.2 NRBC# (test code = NRBC#) 0 K/uL [facility], [id number] 11:27:16* Test Item Value Reference Range Interpretation Comme nts Test (test code = Test) negative [facility] 16:52:00* Test Item Value Reference Range Interpretation Comme nts pathology S# (test code = pathology S#) see emr pathology report. [facility] - [id number] 17:47:00* Test Item Value Reference Range Interpretation Comme nts hemoglobin (test code = hemoglobin) 9.7 g/dL 10.5-15.7 L hematocrit (test code = hematocrit) 29.9 % 34.0-50.0 L [facility] W Auto Differential panel - [id number] 05:25:00 * Test Item Value Reference Range Interpretation Comme nts white blood count (test code = white blood count) 9.9 K/uL 4.0-11.5 red blood count (test code = red blood count) 3.14 M/uL 3.80-5.20 L hemoglobin (test code = hemoglobin) 8.9 g/dL 10.5-15.7 L hematocrit (test code = hematocrit) 26.7 % 34.0-50.0 L mean corpuscular volume (kyree t code = mean corpuscular volume) 85.0 fL 86.0-100.0 L mean corpuscular hemoglobin (test code = mean corpuscular hemoglobin) 28.3 pg 26.2-33.4 mean corpuscular HGB conc (t est code = mean corpuscular HGB conc) 33.3 g/dL 30.0-34.0 red cell distribution width (test code = red cell distribution width) 12.4 % 12.0-15.5 platelet count (test code = platelet count) 160 K/uL 165-450 L mean platelet volume (test c ode = mean platelet volume) 10.7 fL 9.4-12.6 neutrophils % (test code = neutrophils %) 81.7 % 44.4-80.1 H Ig% (test code = Ig%) 0.3 % 0.0-0.4 lymphocyte% (test code = lymphocyte%) 10.1 % 10.0-50.0 mono % (test code = mono %) 7.7 % 3.6-12.0 eos % (test code = eos %) 0.1 % 0.0-5.4 basophil % (test code = baso ning %) 0.1 % 0.1-1.2 absolute neutrophil count (t est code = absolute neutrophil count) 8.05 K/uL 1.56-6.13 H Ig# (test code = Ig#) 0.03 K/uL 0.00-0.03 lymph # (test code = lymph #) 0.99 K/uL 1.18-3.74 L mono # (test code = mono #) 0.76 K/uL 0.24-0.86 eos # (test code = eos #) 0.01 K/uL 0.04-0.36 L basophil # (test code = baso ning #) 0.01 K/uL 0.01-0.08 NRBC% (test code = NRBC%) 0 /100 WBC 0-0.2 NRBC# (test code = NRBC#) 0 K/uL [facility] W Auto Differential panel - [id number] 19:58:00 * Test Item Value Reference Range Interpretation Comme nts white blood count (test code = white blood count) 10.3 K/uL 4.0-11.5 red blood count (test code = red blood count) 3.65 M/uL 3.80-5.20 L hemoglobin (test code = hemoglobin) 10.1 g/dL 10.5-15.7 L hematocrit (test code = hematocrit) 30.9 % 34.0-50.0 L mean corpuscular volume (kyree t code = mean corpuscular volume) 84.7 fL 86.0-100.0 L mean corpuscular hemoglobin (test code = mean corpuscular hemoglobin) 27.7 pg 26.2-33.4 mean corpuscular HGB conc (t est code = mean corpuscular HGB conc) 32.7 g/dL 30.0-34.0 red cell distribution width (test code = red cell distribution width) 12.1 % 12.0-15.5 platelet count (test code = platelet count) 168 K/uL 165-450 mean platelet volume (test c ode = mean platelet volume) 10.0 fL 9.4-12.6 neutrophils % (test code = neutrophils %) 85.4 % 44.4-80.1 H Ig% (test code = Ig%) 0.2 % 0.0-0.4 lymphocyte% (test code = lymphocyte%) 7.2 % 10.0-50.0 L mono % (test code = mono %) 7.0 % 3.6-12.0 eos % (test code = eos %) 0 % 0.0-5.4 basophil % (test code = baso ning %) 0.2 % 0.1-1.2 absolute neutrophil count (t est code = absolute neutrophil count) 8.82 K/uL 1.56-6.13 H Ig# (test code = Ig#) 0.02 K/uL 0.00-0.03 lymph # (test code = lymph #) 0.74 K/uL 1.18-3.74 L mono # (test code = mono #) 0.72 K/uL 0.24-0.86 eos # (test code = eos #) 0.00 K/uL 0.04-0.36 L basophil # (test code = baso ning #) 0.02 K/uL 0.01-0.08 NRBC% (test code = NRBC%) 0 /100 WBC 0-0.2 NRBC# (test code = NRBC#) 0 K/uL [facility]-[id number] 15:19:00* Test Item Value Reference Range Interpretation Comme [facility] D-dimer (test code = D-dimer) 4614 NG/mL <500 H [facility] CountyPT/[id number] 15:01:00* Test Item Value Reference Range Interpretation Comme [facility] prothrombin time (test code = prothrombin time) 10.5 seconds 10.3-12.3 INR (test code = INR) < 0.94 [facility] [id number] 15:01:00* Test Item Value Reference Range Interpretation Comme [facility] partial thromboplastin time (test code = partial thromboplastin time) 28.2 seconds 22.5-37.0 [facility] W Auto Differential panel - [id number] 14:44:00 * Test Item Value Reference Range Interpretation Comme nts white blood count (test code = white blood count) 8.6 K/uL 4.0-11.5 red blood count (test code = red blood count) 3.41 M/uL 3.80-5.20 L hemoglobin (test code = hemoglobin) 9.4 g/dL 10.5-15.7 L hematocrit (test code = hematocrit) 28.8 % 34.0-50.0 L mean corpuscular volume (kyree t code = mean corpuscular volume) 84.5 fL 86.0-100.0 L mean corpuscular hemoglobin (test code = mean corpuscular hemoglobin) 27.6 pg 26.2-33.4 mean corpuscular HGB conc (t est code = mean corpuscular HGB conc) 32.6 g/dL 30.0-34.0 red cell distribution width (test code = red cell distribution width) 12.4 % 12.0-15.5 platelet count (test code = platelet count) 157 K/uL 165-450 L mean platelet volume (test c ode = mean platelet volume) 9.7 fL 9.4-12.6 neutrophils % (test code = neutrophils %) 71.9 % 44.4-80.1 Ig% (test code = Ig%) 0.3 % 0.0-0.4 lymphocyte% (test code = lymphocyte%) 19.6 % 10.0-50.0 mono % (test code = mono %) 8.1 % 3.6-12.0 eos % (test code = eos %) 0 % 0.0-5.4 basophil % (test code = baso ning %) 0.1 % 0.1-1.2 absolute neutrophil count (t est code = absolute neutrophil count) 6.18 K/uL 1.56-6.13 H Ig# (test code = Ig#) 0.03 K/uL 0.00-0.03 lymph # (test code = lymph #) 1.69 K/uL 1.18-3.74 mono # (test code = mono #) 0.70 K/uL 0.24-0.86 eos # (test code = eos #) 0.00 K/uL 0.04-0.36 L basophil # (test code = baso ning #) 0.01 K/uL 0.01-0.08 NRBC% (test code = NRBC%) 0 /100 WBC 0-0.2 NRBC# (test code = NRBC#) 0 K/uL [facility] [id number] 14:02:00* Test Item Value Reference Range Interpretation Comme nts blood glucose monitoring (te st code = blood glucose monitoring) 113 mg/dL 70.0-110 H [facility] CountyRPR2023-01-18 13:00:00* Test Item Value Reference Range Interpretation Comme nts RPR (test code = RPR) nonreactive nonreactive [facility] Countyhepatitis B surface [id number] 08:15:00* Test Item Value Reference Range Interpretation Comme nts .hepatitis B surface antigen (test code = .hepatitis B surface antigen) negative negative [facility] CountyCB W Auto Differential panel - [id number] 19:53:00 * Test Item Value Reference Range Interpretation Comme nts white blood count (test code = white blood count) 5.1 K/uL 4.0-11.5 red blood count (test code = red blood count) 3.80 M/uL 3.80-5.20 hemoglobin (test code = hemoglobin) 10.5 g/dL 10.5-15.7 hematocrit (test code = hematocrit) 32.2 % 34.0-50.0 L mean corpuscular volume (kyree t code = mean corpuscular volume) 84.7 fL 86.0-100.0 L mean corpuscular hemoglobin (test code = mean corpuscular hemoglobin) 27.6 pg 26.2-33.4 mean corpuscular HGB conc (t est code = mean corpuscular HGB conc) 32.6 g/dL 30.0-34.0 red cell distribution width (test code = red cell distribution width) 12.3 % 12.0-15.5 platelet count (test code = platelet count) 139 K/uL 165-450 L ipf# (test code = ipf#) 7.5 ipf% (test code = ipf%) 5.4 % 0-8 mean platelet volume (test c ode = mean platelet volume) 11.5 fL 9.4-12.6 neutrophils % (test code = neutrophils %) 65.0 % 44.4-80.1 Ig% (test code = Ig%) 0.4 % 0.0-0.4 lymphocyte% (test code = lymphocyte%) 26.5 % 10.0-50.0 mono % (test code = mono %) 7.7 % 3.6-12.0 eos % (test code = eos %) 0.2 % 0.0-5.4 basophil % (test code = baso ning %) 0.2 % 0.1-1.2 absolute neutrophil count (t est code = absolute neutrophil count) 3.29 K/uL 1.56-6.13 Ig# (test code = Ig#) 0.02 K/uL 0.00-0.03 lymph # (test code = lymph #) 1.34 K/uL 1.18-3.74 mono # (test code = mono #) 0.39 K/uL 0.24-0.86 eos # (test code = eos #) 0.01 K/uL 0.04-0.36 L basophil # (test code = baso ning #) 0.01 K/uL 0.01-0.08 NRBC% (test code = NRBC%) 0 /100 WBC 0-0.2 NRBC# (test code = NRBC#) 0 K/uL [facility] CountyUrinalysis macro (dipstick) panel - [id number] 10:50:46* Test Item Value Reference Range Interpretation Comme nts Leukocytes (test code = Leukocytes) Negative Nitrite (test code = Nitrite) negative Urobilinogen (test code = Urobilinogen) 1 Protein (test code = Protein) Negative pH (test code = pH) 7.0 Blood (test code = Blood) Negative Specific [place] (test code = Specific [place]) 1.020 Ketone (test code = Ketone) Small Bilirubin (test code = Bilirubin) Negative Glucose (test code = Glucose) Negative Appearance (test code = Appearance) Clear Color (test code = Color) Yellow [facility] Co[id number] 15:41:00* Test Item Value Reference Range Interpretation Comme nts color, urine (test code = co pamela, urine) yellow appearance, urine (test code = appearance, urine) clear clear urine glucose (test code = u rine glucose) negative negative bilirubin, urine (test code = bilirubin, urine) negative negative ketone, urine (test code = k etone, urine) negative negative specific gravity,urine (test code = specific gravity,urine) 1.009 1.003-1.030 blood urine (test code = blo od urine) negative negative pH,urine (test code = pH,urine) 6.500 5-9 protein urine (UA) (test cod e = protein urine (UA)) negative negative urobilinogen, urine (test co de = urobilinogen, urine) normal 0.2-1.0 nitrate, urine (test code = nitrate, urine) negative negative urine leukocyte esterase (te st code = urine leukocyte esterase) negative negative [facility] GroupUrinalysis macro (dipstick) panel - [id number] 09:58:37* Test Item Value Reference Range Interpretation Comme nts Leukocytes (test code = Leukocytes) Negative Nitrite (test code = Nitrite) negative Urobilinogen (test code = Urobilinogen) 1 Protein (test code = Protein) Negative pH (test code = pH) 6.5 Blood (test code = Blood) Negative Specific [place] (test code = Specific [place]) 1.015 Ketone (test code = Ketone) Small Bilirubin (test code = Bilirubin) Small Glucose (test code = Glucose) Negative Appearance (test code = Appearance) Slightly Cloudy Color (test code = Color) Yellow [facility] CountyUrinalysis macro (dipstick) panel - [id number] 09:55:09* Test Item Value Reference Range Interpretation Comme nts Leukocytes (test code = Leukocytes) Negative Nitrite (test code = Nitrite) negative Urobilinogen (test code = Urobilinogen) 2 Protein (test code = Protein) Negative pH (test code = pH) 7.0 Blood (test code = Blood) Negative Specific [place] (test code = Specific [place]) 1.020 Ketone (test code = Ketone) Negative Bilirubin (test code = Bilirubin) Negative Glucose (test code = Glucose) Negative Appearance (test code = Appearance) Slightly Cloudy Color (test code = Color) Yellow [facility] GroupStreptococcus agalactiae [Presence] in Vag+Rectum by Organism specific [id number] 09:56:00* Test Item Value Reference Range Interpretation Comme nts gbs source (test code = gbs source) not provided gbs culture pcnn final result: (test code = gbs culture pcnn final result:) no group B strep isolated. final report: (test code = final report:) microbiology results [facility] CountyUrinalysis macro (dipstick) panel - [id number] 09:36:22* Test Item Value Reference Range Interpretation Comme nts Leukocytes (test code = Leukocytes) Small Nitrite (test code = Nitrite) negative Urobilinogen (test code = Urobilinogen) .2 Protein (test code = Protein) Negative pH (test code = pH) 6.0 Blood (test code = Blood) Negative Specific [place] (test code = Specific [place]) 1.020 Ketone (test code = Ketone) Negative Bilirubin (test code = Bilirubin) Negative Glucose (test code = Glucose) Negative Appearance (test code = Appearance) Clear Color (test code = Color) Yellow [facility] CountyGlucose [Mass/volume] in Capillary [id number] 11:30:07* Test Item Value Reference Range Interpretation Comme nts GLU (test code = GLU) 110 [facility] CountyUrinalysis macro (dipstick) panel - [id number] 11:14:13* Test Item Value Reference Range Interpretation Comme nts Leukocytes (test code = Leukocytes) Trace Nitrite (test code = Nitrite) negative Urobilinogen (test code = Urobilinogen) 1 Protein (test code = Protein) Negative pH (test code = pH) 6.0 Blood (test code = Blood) Negative Specific [place] (test code = Specific [place]) 1.020 Ketone (test code = Ketone) Small Bilirubin (test code = Bilirubin) Negative Glucose (test code = Glucose) Negative Appearance (test code = Appearance) Slightly Cloudy Color (test code = Color) Yellow [facility] CountyUrinalysis macro (dipstick) panel - [id number] 09:25:27* Test Item Value Reference Range Interpretation Comme nts Leukocytes (test code = Leukocytes) Negative Nitrite (test code = Nitrite) negative Urobilinogen (test code = Urobilinogen) 1 Protein (test code = Protein) Negative pH (test code = pH) 6.0 Blood (test code = Blood) Negative Specific [place] (test code = Specific [place]) 1.020 Ketone (test code = Ketone) Negative Bilirubin (test code = Bilirubin) Negative Glucose (test code = Glucose) Negative Appearance (test code = Appearance) Slightly Cloudy Color (test code = Color) Dark Yellow [facility] CountyIndirect antiglobulin test.unspecified reagent [Presence] in Serum or [id number] 09:18:00* Test Item Value Reference Range Interpretation Comme nts ind laura (test code = ind laura) negative [facility] CountyCB W Auto Differential panel - [id number] 00:00:00 * Test Item Value Reference Range Interpretation Comme nts white blood count (test code = white blood count) 6.5 K/uL 4.0-11.5 red blood count (test code = red blood count) 3.43 M/uL 3.80-5.20 L hemoglobin (test code = hemoglobin) 10.2 g/dL 10.5-15.7 L hematocrit (test code = hematocrit) 30.1 % 34.0-50.0 L mean corpuscular volume (kyree t code = mean corpuscular volume) 87.8 fL 86.0-100.0 mean corpuscular hemoglobin (test code = mean corpuscular hemoglobin) 29.7 pg 26.2-33.4 mean corpuscular HGB conc (t est code = mean corpuscular HGB conc) 33.9 g/dL 30.0-34.0 red cell distribution width (test code = red cell distribution width) 11.9 % 12.0-15.5 L platelet count (test code = platelet count) 206 K/uL 165-450 mean platelet volume (test c ode = mean platelet volume) 10.9 fL 9.4-12.6 neutrophils % (test code = neutrophils %) 74.6 % 44.4-80.1 Ig% (test code = Ig%) 0.5 % 0.0-0.4 H lymphocyte% (test code = lymphocyte%) 16.2 % 10.0-50.0 mono % (test code = mono %) 8.2 % 3.6-12.0 eos % (test code = eos %) 0.3 % 0.0-5.4 basophil % (test code = baso ning %) 0.2 % 0.1-1.2 absolute neutrophil count (t est code = absolute neutrophil count) 4.84 K/uL 1.56-6.13 Ig# (test code = Ig#) 0.03 K/uL 0.00-0.03 lymph # (test code = lymph #) 1.05 K/uL 1.18-3.74 L mono # (test code = mono #) 0.53 K/uL 0.24-0.86 eos # (test code = eos #) 0.02 K/uL 0.04-0.36 L basophil # (test code = baso ning #) 0.01 K/uL 0.01-0.08 NRBC% (test code = NRBC%) 0 /100 WBC 0-0.2 NRBC# (test code = NRBC#) 0 K/uL [facility] CountyRPR2022-10-31 00:00:00* Test Item Value Reference Range Interpretation Comme nts RPR (test code = RPR) nonreactive nonreactive [facility] Countyglucose puhong 1 HR fasting [id number] 00:00:00Glucose Phuong 1 hr [facility]:00:00* Test Item Value Reference Range Interpretation Comme nts HIV P24 Ag (test code = HIV P24 Ag) non-reactive nonreactive HIV-1/2 Ab (test code = HIV- 1/2 Ab) non-reactive nonreactive [facility] CountyUrinalysis macro (dipstick) panel - [id number] 15:19:14* Test Item Value Reference Range Interpretation Comme nts Leukocytes (test code = Leukocytes) Negative Nitrite (test code = Nitrite) negative Urobilinogen (test code = Urobilinogen) .2 Protein (test code = Protein) Negative pH (test code = pH) 7.5 Blood (test code = Blood) Negative Specific [place] (test code = Specific [place]) 1.020 Ketone (test code = Ketone) Small Bilirubin (test code = Bilirubin) Negative Glucose (test code = Glucose) Negative Appearance (test code = Appearance) Slightly Cloudy Color (test code = Color) Yellow [facility] CountyUrinalysis macro (dipstick) panel - [id number] 10:24:29* Test Item Value Reference Range Interpretation Comme nts Leukocytes (test code = Leukocytes) Negative Nitrite (test code = Nitrite) negative Urobilinogen (test code = Urobilinogen) .2 Protein (test code = Protein) Negative pH (test code = pH) 6.5 Blood (test code = Blood) Negative Specific [place] (test code = Specific [place]) 1.020 Ketone (test code = Ketone) Negative Bilirubin (test code = Bilirubin) Negative Glucose (test code = Glucose) Negative Appearance (test code = Appearance) Slightly Cloudy Color (test code = Color) Yellow [facility] CountyUrinalysis macro (dipstick) panel - [id number] 14:31:14* Test Item Value Reference Range Interpretation Comme nts Leukocytes (test code = Leukocytes) Negative Nitrite (test code = Nitrite) negative Urobilinogen (test code = Urobilinogen) 1 Protein (test code = Protein) Negative pH (test code = pH) 7.0 Blood (test code = Blood) Negative Specific [place] (test code = Specific [place]) 1.025 Ketone (test code = Ketone) Negative Bilirubin (test code = Bilirubin) Negative Glucose (test code = Glucose) Negative Appearance (test code = Appearance) Slightly Cloudy Color (test code = Color) Yellow [facility] Countypregnancy test, [id number] 14:01:56* Test Item Value Reference Range Interpretation Comme nts Test (test code = Test) positive [facility] CountyCHEM [id number] 03:36:0067[facility] 2020-[facility] 03:36:004.5[facility]URINE [id number] 02:40:00Negative (11/17/20 8:40 PM)[facility]annCHEM [id number] 10:50:0066[facility] [id number] 10:50:0057.0[facility]annCHEM [id number] 11:51:0077 [facility] R[id number] 11:51:00* Test Item Value Reference Range Interpretation Comme nts PT (test code = PT) 14.9 s 12.0-14.7 [facility]CHE[facility] [id number] 14:32:0023[facility]annCHEM PANEL 2020-11-05 17:57:0078[facility] [id number] 17:57:005.9[facility] EunuyfbCSLQLGWBGH6395-76-93 17:49:00Not Detected (11/05/20 11:49 AM)[facility] RennyannURINE AND [id number] 17:15:00Yellow *NA*(11/05/20 11:15 AM)[facility] QzhixuyTMIFJOVSMJZU0255-19-58 13:56:04833Gkvwwuds ImnjjamHLXVBWFRNS1512-96-27 18:53:00Not Detected *NA*(08/14/20 1:53 PM)[facility] [id number] 04:19:00* Test Item Value Reference Range Interpretation Comme nts APPEARANCE (test code = 7789266890) Clear Clear COLOR (test code = 7403721703) Yellow Yellow PH (test code = 8903164220) 4.8-8.0 SP GRAVITY (test code = 7078205957) 1.003-1.030 GLU U QUAL (test code = 6841436818) Normal Normal BLOOD (test code = 9896866460) Negative Negative KETONES (test code = 1462618558) Negative Negative PROTEIN (test code = 2887-8) Negative Negative UROBILIN (test code = 6428797038) Normal Normal BILIRUBIN (test code = 4270252271) Negative Negative NITRITE (test code = 6736109900) Negative Negative LEUK APOLINAR (test code = 5976926490) Negative Negative RBC/HPF (test code = 0383921277) See_Comment [Automated Quida ge] The system which generated this result transmitted reference range: 0 - 3 HPF. The reference range was not used to interpret this result as normal/abnormal. WBC/HPF (test code = 1096843665) See_Comment [Automated Quida ge] The system which generated this result transmitted reference range: 0 - 5 HPF. The reference range was not used to interpret this result as normal/abnormal. BACTERIA (test code = 1014778770) Negative Negative MUCOUS (test code = 8083708116) Slight Negative LPF A SQ EPITH (test code = 4893813785) HPF Lab Interpretation (test code = 69712-6) [facility] [id number] 04:04:00* Test Item Value Reference Range Interpretation Comme nts POCT PREG (test code = 1605) negative On board controls acceptable with C Line (test code = 3574) yes POCT PREG LOT # (test code = 3575) [id number] POCT PREG TEST DATE ( test code = 3576) 05/08/2021 Lab Interpretation (test cod e = 97524-9) Normal [facility] Notes Date/Time Note Provider Source 2024-08-07 16:14:00 Regardinyof seeking medical advice for throat ----- Message from Brianna Chong sent at 08/07/2024 4:11 PM CDT ----- Brayan Darling is a 28 year old female Went to sleep and woke up and Feels like something stuck in throat , when swallowing feels like it goes down but comes back up seeking medical advice no pain [facility] 2024-08-07 16:14:00 Adult Triage Assessment Last Clinic Visit: 03/14/24 Urgent Care, Sinus problem Primary Symptom: "Feeling like something is stuck in my throat, or have a lump in there" Onset / Duration: 08/05 at 0430 Location / Description: Throat Pain / Severity: 0/10 Associated Symptoms: Denies Fever / Method: Denies Hydration: Eating and drinking normally. Urinating ok Treatment so far: "Tried drinking warm and cold liquids" Effect on ADL's: Some LMP: 08/04 Pre-existing condition / Immunocompromised: Hypothyroidism, PCOS, asthma Brayan Darling is a 28 year old female calling with concern after waking up Thursday morning with a feeling like something, "Was stuck in my throat. Can eat and drink normally, just feels like there is a lump in there. Breathing fine, but starting to get anxious about it." Patient states she does not see any patches on her tonsils. Advised per protocol to see PCP within 3 days, patient states she needs a new PCP and will go to the urgent care clinic closest to her. No additional questions before disconnect. Jessie Roberts BSDarlin, RN Reason for Disposition [1] Sore throat is the only symptom AND [2] present > 48 hours Protocols used: Sore [id number] [facility]
--- NOTE | 2024-08-09 12:38 | ER ---
Nurse's Notes [facility] Name: Connie Duong Age: 28 yrs Sex: Female : 1995 Arrival Date: 08/09/2024 Time: 10:48 Bed DIS1 Private MD: Diagnosis: Presentation: 08/09 10:57 Chief complaint: Patient states: starting Thursday morning, has felt like she has tm6 something in her throat. Has tried different medications, in case it was reflux, but nothing has worked. Dentist asked her to come in to ER, as GI would not be able to get her in for a couple of weeks. Eating or drinking is painful to swallow, gets painful hiccups. Coronavirus screen: Vaccine status: Patient reports receiving the 2nd dose of the covid vaccine. Client denies travel out of the [place] in the last 14 days. Ebola Screen: Patient negative for fever greater than or equal to 101.5 degrees Fahrenheit, and additional compatible Ebola Virus Disease symptoms Patient denies exposure to infectious person. Patient denies travel to an Ebola-affected area in the 21 days before illness onset. No symptoms or risks identified at this time. Initial Sepsis Screen: Does the patient meet any 2 criteria? No. Patient's initial sepsis screen is negative. Does the patient have a suspected source of infection? No. Patient's initial sepsis screen is negative. Risk Assessment: Do you want to hurt yourself or someone else? Patient reports no desire to harm self or others. Onset of symptoms was August 05, 2024. 10:57 Method Of Arrival: Ambulatory tm6 10:57 Acuity: [place] 3 tm6 Triage Assessment: 10:59 General: Appears in no apparent distress. Behavior is calm, cooperative. Pain: tm6 Complains of pain in neck Pain does not radiate. Pain currently is 0 out of 10 on a pain scale. Pain began 2-3 days ago. EENT: Reports pain in throat when swallowing feels like something is stuck in throat since Thursday. Neuro: Level of Consciousness is awake, alert, obeys commands, Oriented to person, place, time, situation. Cardiovascular: Patient's skin is warm and dry. Respiratory: Airway is patent Respiratory effort is even, unlabored, Respiratory pattern is regular, symmetrical. GI: Abdomen is flat, non-distended. GI: No signs and/or symptoms were reported involving the gastrointestinal system. : No signs and/or symptoms were reported regarding the genitourinary system. Derm: No signs and/or symptoms reported regarding the dermatologic system. Musculoskeletal: No signs and/or symptoms reported regarding the musculoskeletal system. BONUS CLERK: 10:59 LMP 08/04/2024, unknown tm6 Historical: - Allergies: 10:59 Sulfa (Sulfonamide Antibiotics); tm6 10:59 Cipro; tm6 - PMHx: 10:59 PCOS; Endometriosis of vagina; tm6 - PSHx: 10:59 gastric sleeve; tm6 - Immunization history:: Client reports receiving the 2nd dose of the Covid vaccine. - Infectious Disease History:: Denies. - Social history:: Smoking status: Patient denies any tobacco usage or history of. Patient uses alcohol, only on a social basis. Assessment: 12:35 Reassessment: pt not in lobby , called pt on phone, no answer. iw Vital Signs: 10:57 BP 139 / 79; Pulse 71; Resp 18; Temp 97.2; Pulse Ox 100% on R/A; Weight 84.37 kg; tm6 Height 5 ft. 6 in. ; Pain 0/10; 10:57 Body Mass Index 30.02 (84.37 kg, 167.64 cm) tm6 10:57 Pain Scale: Adult tm6 ED Course: 10:52 Patient arrived in ED. gm2 10:59 Triage completed. tm6 10:59 Arm band placed on right wrist. tm6 11:08 Magali Kitchen MD is Attending Physician. gb1 12:33 Helen Garzon, RN is Primary Nurse. iw Administered Medications: No medications were administered Outcome: 12:38 Patient left the ED. iw Signatures: Helen Garzon, RN RN iw Magali Kitchen MD MD gb1 Alida Tan 2 Adina Barber RN RN tm6 Corrections: (The following items were deleted from the chart) 11:00 10:59 PMHx: Hypothyroidism; tm6 tm6
[2024-08-09 12:54] VITALS: BP 139/79; TEMP 97.2; O2SAT 100
== END 2024-08-09 12:38 | disposition left against medical advice (07) ==
LOC: ER 10:48
DX: Z53.21 Procedure and treatment not carried out due to patient leaving prior to being seen by health care provider (principal)
CPT/HCPCS: 99281